=== PATIENT | male | born 1960 | race Caucasian/White ===

== ENCOUNTER 2023-05-18 14:50 | Outpatient (REF) | payer BC, SELFPAY ==
--- NOTE | ~2023-05-18 | XR_ITS ---
EXAMINATION: XR HAND/WRIST, RIGHT XR HAND/WRIST, LEFT CLINICAL INFORMATION: Osteoarthritis. COMPARISON: None available. TECHNIQUE: PA, lateral, and oblique views of the each hand and wrist, together with dedicated navicular views. FINDINGS: RIGHT HAND/WRIST: Bony alignment and mineralization are normal. There is a mild ulnar minus variance. The proximal and distal carpal rows are intact. There is marked osteoarthritic change of the first metacarpophalangeal joint. No fracture or dislocation is seen. There is no abnormal bone erosion. No focal soft tissue swelling, gas or foreign body is seen. XR/XR hand wrist LT IMPRESSION: 1. There is marked osteoarthritic change of the right first carpometacarpal joint. 2. No fracture or dislocation is seen. 3. There is no abnormal bony erosive change. LEFT HAND/WRIST: Bony alignment and mineralization are normal. There is a mild ulnar minus variance. There is a mild ulnar minus variance. The proximal and distal carpal rows are intact. There is mild osteoarthritic change of the left first carpometacarpal joint. No fracture or dislocation is seen. There is no abnormal bone erosion. No focal soft tissue swelling, gas or foreign body is seen. IMPRESSION: 1. There is mild osteoarthritic change of the left first carpometacarpal joint. 2. No fracture or dislocation is seen. 3. There is no abnormal bony erosive change.
--- NOTE | ~2023-05-18 | XR_ITS ---
EXAMINATION: XR HAND/WRIST, RIGHT XR HAND/WRIST, LEFT CLINICAL INFORMATION: Osteoarthritis. COMPARISON: None available. TECHNIQUE: PA, lateral, and oblique views of the each hand and wrist, together with dedicated navicular views. FINDINGS: RIGHT HAND/WRIST: Bony alignment and mineralization are normal. There is a mild ulnar minus variance. The proximal and distal carpal rows are intact. There is marked osteoarthritic change of the first metacarpophalangeal joint. No fracture or dislocation is seen. There is no abnormal bone erosion. No focal soft tissue swelling, gas or foreign body is seen. XR/XR hand wrist RT IMPRESSION: 1. There is marked osteoarthritic change of the right first carpometacarpal joint. 2. No fracture or dislocation is seen. 3. There is no abnormal bony erosive change. LEFT HAND/WRIST: Bony alignment and mineralization are normal. There is a mild ulnar minus variance. There is a mild ulnar minus variance. The proximal and distal carpal rows are intact. There is mild osteoarthritic change of the left first carpometacarpal joint. No fracture or dislocation is seen. There is no abnormal bone erosion. No focal soft tissue swelling, gas or foreign body is seen. IMPRESSION: 1. There is mild osteoarthritic change of the left first carpometacarpal joint. 2. No fracture or dislocation is seen. 3. There is no abnormal bony erosive change.
--- NOTE | ~2023-05-18 | XR_ITS ---
EXAMINATION: XR ANKLE, RIGHT XR FOOT, RIGHT CLINICAL INFORMATION: Osteoarthritis. COMPARISON: None available. TECHNIQUE: AP, lateral, and mortise views of the right ankle. AP, lateral, and oblique views of the right foot. FINDINGS: Bony alignment and mineralization are normal. The ankle mortise is intact. No fracture, dislocation or right joint effusion is seen. Boehler's angle is normal. There is moderately severe osteoarthritic change of the first metatarsophalangeal joint. No abnormal bone erosion is seen. There is no focal soft tissue swelling, gas or foreign body. XR/XR ankle LT min 3V IMPRESSION: 1. No fracture, dislocation or right ankle joint effusion is seen. 2. There is moderately severe osteoarthritic change of the right first metatarsophalangeal joint. EXAMINATION: XR ANKLE, LEFT XR FOOT, LEFT CLINICAL INFORMATION: Osteoarthritis. COMPARISON: None available. TECHNIQUE: AP, lateral, and mortise views of the left ankle. AP, lateral, and oblique views of the left foot. FINDINGS: No fracture. Alignment is anatomic. No erosions. Joint spaces are maintained. Soft tissues are normal. IMPRESSION: Normal left ankle.
--- NOTE | ~2023-05-18 | XR_ITS ---
EXAMINATION: XR ANKLE, RIGHT XR FOOT, RIGHT CLINICAL INFORMATION: Osteoarthritis. COMPARISON: None available. TECHNIQUE: AP, lateral, and mortise views of the right ankle. AP, lateral, and oblique views of the right foot. FINDINGS: Bony alignment and mineralization are normal. The ankle mortise is intact. No fracture, dislocation or right joint effusion is seen. Boehler's angle is normal. There is moderately severe osteoarthritic change of the first metatarsophalangeal joint. No abnormal bone erosion is seen. There is no focal soft tissue swelling, gas or foreign body. XR/XR foot LT min 3V IMPRESSION: 1. No fracture, dislocation or right ankle joint effusion is seen. 2. There is moderately severe osteoarthritic change of the right first metatarsophalangeal joint. EXAMINATION: XR ANKLE, LEFT XR FOOT, LEFT CLINICAL INFORMATION: Osteoarthritis. COMPARISON: None available. TECHNIQUE: AP, lateral, and mortise views of the left ankle. AP, lateral, and oblique views of the left foot. FINDINGS: No fracture. Alignment is anatomic. No erosions. Joint spaces are maintained. Soft tissues are normal. IMPRESSION: Normal left ankle.
--- NOTE | ~2023-05-18 | XR_ITS ---
EXAMINATION: XR ANKLE, RIGHT XR FOOT, RIGHT CLINICAL INFORMATION: Osteoarthritis. COMPARISON: None available. TECHNIQUE: AP, lateral, and mortise views of the right ankle. AP, lateral, and oblique views of the right foot. FINDINGS: Bony alignment and mineralization are normal. The ankle mortise is intact. No fracture, dislocation or right joint effusion is seen. Boehler's angle is normal. There is moderately severe osteoarthritic change of the first metatarsophalangeal joint. No abnormal bone erosion is seen. There is no focal soft tissue swelling, gas or foreign body. XR/XR ankle RT min 3V IMPRESSION: 1. No fracture, dislocation or right ankle joint effusion is seen. 2. There is moderately severe osteoarthritic change of the right first metatarsophalangeal joint. EXAMINATION: XR ANKLE, LEFT XR FOOT, LEFT CLINICAL INFORMATION: Osteoarthritis. COMPARISON: None available. TECHNIQUE: AP, lateral, and mortise views of the left ankle. AP, lateral, and oblique views of the left foot. FINDINGS: No fracture. Alignment is anatomic. No erosions. Joint spaces are maintained. Soft tissues are normal. IMPRESSION: Normal left ankle.
--- NOTE | ~2023-05-18 | XR_ITS ---
EXAMINATION: XR KNEE, RIGHT CLINICAL INFORMATION: Osteoarthritis. COMPARISON: None TECHNIQUE: AP, lateral, tunnel, and sunrise views of the right knee. FINDINGS: Bones and soft tissues are normal. No fracture or joint effusion. Alignment is anatomic. Joint spaces are well maintained. No abnormal soft tissue calcification. XR/XR knee RT 4V IMPRESSION: Normal knee. EXAMINATION: XR KNEE, LEFT CLINICAL INFORMATION: Osteoarthritis. COMPARISON: None TECHNIQUE: AP, lateral, tunnel, and sunrise views of the left knee. FINDINGS: Bones and soft tissues are normal. No fracture or joint effusion. Alignment is anatomic. Joint spaces are well maintained. No abnormal soft tissue calcification. There are surgical clips in the medial knee soft tissues. IMPRESSION: Normal knee.
--- NOTE | ~2023-05-18 | XR_ITS ---
EXAMINATION: XR ANKLE, RIGHT XR FOOT, RIGHT CLINICAL INFORMATION: Osteoarthritis. COMPARISON: None available. TECHNIQUE: AP, lateral, and mortise views of the right ankle. AP, lateral, and oblique views of the right foot. FINDINGS: Bony alignment and mineralization are normal. The ankle mortise is intact. No fracture, dislocation or right joint effusion is seen. Boehler's angle is normal. There is moderately severe osteoarthritic change of the first metatarsophalangeal joint. No abnormal bone erosion is seen. There is no focal soft tissue swelling, gas or foreign body. XR/XR foot RT min 3V IMPRESSION: 1. No fracture, dislocation or right ankle joint effusion is seen. 2. There is moderately severe osteoarthritic change of the right first metatarsophalangeal joint. EXAMINATION: XR ANKLE, LEFT XR FOOT, LEFT CLINICAL INFORMATION: Osteoarthritis. COMPARISON: None available. TECHNIQUE: AP, lateral, and mortise views of the left ankle. AP, lateral, and oblique views of the left foot. FINDINGS: No fracture. Alignment is anatomic. No erosions. Joint spaces are maintained. Soft tissues are normal. IMPRESSION: Normal left ankle.
--- NOTE | ~2023-05-18 | XR_ITS ---
EXAMINATION: XR KNEE, RIGHT CLINICAL INFORMATION: Osteoarthritis. COMPARISON: None TECHNIQUE: AP, lateral, tunnel, and sunrise views of the right knee. FINDINGS: Bones and soft tissues are normal. No fracture or joint effusion. Alignment is anatomic. Joint spaces are well maintained. No abnormal soft tissue calcification. XR/XR knee LT 4V IMPRESSION: Normal knee. EXAMINATION: XR KNEE, LEFT CLINICAL INFORMATION: Osteoarthritis. COMPARISON: None TECHNIQUE: AP, lateral, tunnel, and sunrise views of the left knee. FINDINGS: Bones and soft tissues are normal. No fracture or joint effusion. Alignment is anatomic. Joint spaces are well maintained. No abnormal soft tissue calcification. There are surgical clips in the medial knee soft tissues. IMPRESSION: Normal knee.
--- NOTE | ~2023-05-18 | XR_ITS ---
EXAMINATION: XR CHEST 2 VIEWS CLINICAL INFORMATION: Unspecified osteoarthritis. COMPARISON: None. TECHNIQUE: Frontal and lateral views of the chest were obtained. FINDINGS: The heart, great vessels, pulmonary vasculature and mediastinum are normal. There has been a prior CABG procedure. The lungs show no focal infiltrate, effusion or pneumothorax. There is no acute osseous abnormality. There has been a prior left shoulder arthroplasty. There is multi-level mild thoracic spondylosis. XR/XR chest 2V IMPRESSION: No active cardiopulmonary disease.
[2023-05-18 16:11] LABS: MANUAL DIFF FLAG NO
[2023-05-18 17:45] LABS: Basophils Percent Auto 0.2 % (0-2); Eosinophils Percent Auto 0.1 % (0-4); Hematocrit 42.6 % (42.0-52.0); Hemoglobin 14.1 g/dl (14.0-18.0); Imm Gran Abs Auto 0.16 X10*3/uL (0.00-0.03); Imm Gran Pct Auto 1.3 % (0.0-0.4); Lymphocytes Absolute Auto 1.9 X10*3/uL (1.2-4.9); Mean Corpuscular HGB Conc 33.1 g/dl (31.0-36.0); Mean Corpuscular Hemoglobin 27.2 pg (27.0-33.0); Mean Corpuscular Volume 82.1 fL (80.0-98.0); Mean Platelet Volume 9.5 fL (9.4-12.4); Monocytes Absolute Auto 0.5 X10*3/uL (0.1-1.2); Monocytes Percent Auto 3.7 % (2-11); Neutrophils Percent Auto 79.7 % (45-73); Platelet Count 472 X10*3/uL (160-400); Red Blood Count 5.19 X10*6/uL (4.60-5.80); Red Cell Distribution Width 14.3 % (11.0-16.0); White Blood Count 12.6 X10*3/uL (4.8-10.8)
[2023-05-18 18:12] LABS: Alanine Aminotransferase 31 U/L (0-40); Alkaline Phosphatase 89 U/L (39-117); Anion Gap 14 (12-20); Aspartate Amino Transferase 20 U/L (5-37); Bilirubin Total 0.3 mg/dL (0.0-1.0); Blood Urea Nitrogen 18 mg/dL (9-16); C Reactive Protein 0.68 mg/dL (< or = 0.50); Calcium 9.2 mg/dL (8.4-10.2); Carbon Dioxide 23 mmol/L (22-29); Chloride 104 mmol/L (96-108); Estimated Glomerular Filt Rate > 60; Glucose Random 177 mg/dL (60-115); Potassium 4.5 mmol/L (3.3-5.1); Sodium 136 mmol/L (135-145); Total Protein 6.9 g/dL (6.5-8.0)
[2023-05-18 18:25] LABS: Erythrocyte Sedimentation Rate 9 MM/HR (0-15)
[2023-05-19 08:16] LABS: HBS Num1 1.39 mIU/mL (0-7.99); HBc Num1 0.08 S/CO (0.00-0.79); HBsAGNum1 0.37 S/CO (0.00-0.99); Hepatitis A Antibody IgM 0.19 Index (0-0.79); Hepatitis B Core Antibody Nonreactive (Nonreactive); Hepatitis B Surface Antigen Negative (Negative); ~HepC Num1 0.07 S/CO (0.00-0.79); ~Hepatitis A Antibody IgM Nonreactive (Nonreactive); ~Hepatitis B Surface Antibody NONREACTIVE (Nonreactive); ~Hepatitis C Antibody Nonreactive (Nonreactive)
[2023-05-20 17:04] LABS: TS Negative Control Passed; TS Panel A 1; TS Panel B 0; TS Positive Control Passed; TSpotTB Negative (Negative)
[2023-05-22 18:23] LABS: Prot Elec - Albumin 3.7 g/dL (3.8-4.8); Prot Elec - Alpha1 0.4 g/dL (0.2-0.3); Prot Elec - Alpha2 0.9 g/dL (0.5-0.9); Prot Elec - Beta 1 0.4 g/dL (0.4-0.6); Prot Elec - Beta 2 0.4 g/dL (0.2-0.5); Prot Elec - Gamma 0.8 g/dL (0.8-1.7); Prot Elec - Total Protein 6.5 g/dL (6.1-8.1)
[2023-05-23 13:33] LABS: Cyclic Citrullinated Peptide <16 UNITS
[2023-05-23 17:29] LABS: IgA 188 mg/dL (70-320); IgG 861 mg/dL (600-1540); IgM 45 mg/dL (50-300)
== END 2023-05-18 14:51 | disposition home or self-care (01) ==
LOC: HO.LAB 14:50
PROVIDERS: PCP Internal Medicine; Visit Provider Student in an Organized Health Care Education/Training Program
DX: M19.90 Unspecified osteoarthritis, unspecified site (principal); E11.9 Type 2 diabetes mellitus without complications; Z11.59 Encounter for screening for other viral diseases; Z11.7 Encounter for testing for latent tuberculosis infection; Z72.89 Other problems related to lifestyle
CPT/HCPCS: 36415; 71046; 73110; 73130; 73564; 73610; 73630; 80053; 82784; 84165; 85025; 85652; 86140; 86200; 86334; 86481; 86704; 86706; 86709; 86803; 87340

== ENCOUNTER 2023-05-18 14:50 | Outpatient (AMB) | payer BC, SELFPAY ==
--- NOTE | 2023-05-18 15:00 | A.OFFVIS_ITS ---
Intake Vital Signs 3 05/18/23 15:04 Height 5 ft 5 in Weight 198 lb 6.656 oz BMI 33.0 BP 108/62 Blood Pressure Location Rt brachial Position Sitting Pulse 72 Pulse Source Pulse Oximeter Temp 96.9 F Temp Source Skin Pulse Oximetry (%) 96 Intake Visit Reasons: RA Intake Note: New pt presents today for RA consult. 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 The condition started 5-6 months ago when the patient started noticing significant cramping of his legs, at night. Soon after he started developing pain and swelling of his ankles, feet, knees, hands, wrists. Associated with significant stiffness. The stiffness can last all day but can improved if he is more active. He denies any back pain or stiffness. He stated that he had left shoulder rotator cuff tendinitis problems in the past, he had a couple of arthroscopies and eventually had left shoulder replacement around 2014. States that prednisone especially 20 mg a day provides dramatic relief. Patient denies any fevers, weight change, he denies any history suggestive of Raynaud's. Denies any history of DVT/PE. Patient's states that patient's mother had colitis she believes that it may be ulcerative colitis PFS Medical History Polyarthralgia Hypercholesteremia Stress hyperglycemia Venous insufficiency MARIANNA on CPAP Hypertension GERD (gastroesophageal reflux disease) Diabetes Coronary artery disease Surgical History S/P CABG x 3 Hx of endoscopy H/O arthroscopy of shoulder S/P cardiac catheterization Hx of colonoscopy H/O shoulder replacement Family History Mother DVT (deep venous thrombosis) Hypertension Diabetes Father Coronary artery disease Social History Household Members: Spouse Alcohol intake: current Alcohol intake frequency: holidays/special occasions only Patient Tobacco Use Status: Former Tobacco user Current occupational status: retired 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 Review of Systems Const Reports weakness Musc Reports arthralgias, Reports joint swelling and Reports stiffness Neuro Reports weakness Physical Exam Vital Signs: Last Vital Signs Temp 96.9 F 05/18/23 15:04 Pulse 72 05/18/23 15:04 BP 108/62 05/18/23 15:04 Pulse Ox 96 05/18/23 15:04 BMI result Body Mass Index 33.0 Const General: cooperative, healthy appearing and comfortable Nutritional Appearance: obese Orientation/consciousness: patient oriented x3 Limitations: no limitations HEENT Head: Yes normocephalic and Yes atraumatic Mouth: moist mucous membranes Resp Effort & Inspection: normal respiratory effort and able to speak in complete sentences Auscultation: clear to auscultation bilaterally Cardio Rate: regular rate Rhythm: regular rhythm GI Inspection: No distended Palpation (GI): Soft to palpation and nontender Skin General skin exam: no rashes or lesions noted Neuro General: patient oriented x3 Extrem Other: Bilateral wrist pain with full flexion and extension Left hand with 3rd and 4th MCP swelling No active synovitis otherwise Normal range of motion of elbows shoulders, knees ankles and feet without any pain Negative MTP squeeze test bilaterally Normal nailfold capillaroscopy Pictures from when his hand was swollen Results Reviewed Results Reviewed: Labs 10/2022? Lyme screen/Anaplasma PCR/Babesia PCR/Ehrlichia PCR/B. Miyamotoi PCR/B. Burgdoferi PCR all -ve CBC unremarkable ESR 29 Uric acid 5.3 Ultra high sensitivity CRP 50.72 (0-3) LJ screen/RF negative Labs 04/2023 ?CBC unremarkable except for hemoglobin 12.7 (>13.7) CMP unremarkable HbA1c 7.6% ESR 53 Assessment & Plan Assessment & Plan (1) Inflammatory arthritis: Code(s): M19.90 - Unspecified osteoarthritis, unspecified site Plan: This is a 63-year-old male who presents for evaluation of a 6 month history of multiple joint pain swelling and stiffness. Symptoms dramatically improved with prednisone. Clinical picture consistent with inflammatory arthritis likely RA, check labs and x-rays of involved joints. Advised patient to start tapering his prednisone. As prescribed. Follow-up in 3 weeks to discuss treatment Plan I spent 46 minutes reviewing patient's chart, evaluating patient, ordering diagnostic workup, counseling patient and documenting in the chart Orders: Orders 2 Complete Blood Count Auto Diff Today M1.90 - Unspecified osteoarthritis, unspecified site Hepatitis A,B,C Profile Today Z11.59 - Encounter for screening for other viral diseases Protein Electrophoresis, Serum Today M19.90 - Unspecified osteoarthritis, unspecified site Cyclic Citrullinated Peptide Today M19.90 - Unspecified osteoarthritis, unspecified site XR foot LT min 3V Today M19.90 - Unspecified osteoarthritis, unspecified site XR foot RT min 3V Today M19.90 - Unspecified osteoarthritis, unspecified site XR knee RT 3V Today M19.90 - Unspecified osteoarthritis, unspecified site XR knee standing BI Today M19.90 - Unspecified osteoarthritis, unspecified site Comprehensive Met. Panel Today M19.90 - Unspecified osteoarthritis, unspecified site C Reactive Protein Today M19.90 - Unspecified osteoarthritis, unspecified site Erythrocyte Sedimentation Rate Today M19.90 - Unspecified osteoarthritis, unspecified site T Spot TB Today Z11.7 - Encounter for testing for latent tuberculosis infection Immunofixation Pnl, Serum Today M19.90 - Unspecified osteoarthritis, unspecified site XR ankle LT min 3V Today M19.90 - Unspecified osteoarthritis, unspecified site XR ankle RT min 3V Today M19.90 - Unspecified osteoarthritis, unspecified site XR hand wrist LT Today M19.90 - Unspecified osteoarthritis, unspecified site XR hand wrist RT Today M19.90 - Unspecified osteoarthritis, unspecified site XR knee LT 3V Today M19.90 - Unspecified osteoarthritis, unspecified site XR chest 2V Today M19.90 - Unspecified osteoarthritis, unspecified site Medications: New 2 prednisone Take 3 tabs by mouth once daily for 1 week then 2 tabs daily for 1 week then remain on 1 tab daily 49 tabs 0RF Coding Level of Care Code New Pt Level 4 (86835) Diagnoses Inflammatory arthritis M1
[2023-05-18 15:04] VITALS: BP 108/62; PULSE 72; TEMP 36.1; O2SAT 96; BMI 33.0
== END 2023-05-18 15:32 | disposition home or self-care (01) ==
PROVIDERS: PCP Internal Medicine; Visit Provider Student in an Organized Health Care Education/Training Program
DX: M19.90 Unspecified osteoarthritis, unspecified site (principal)
CPT/HCPCS: 99204

== ENCOUNTER 2023-06-13 11:29 | Outpatient (AMB) | payer BC, SELFPAY ==
--- NOTE | 2023-06-13 11:36 | A.OFFVIS_ITS ---
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: No Accompanied by: Self / Same As Patient Allergies No Known Allergies Allergy (Verified 06/13/23 11:38) Medication List - Last Reconciled 06/13/23 by Tash Adams MD atorvastatin 80 mg PO DAILY baclofen mg PO clopidogrel 75 mg PO DAILY folic acid 1 mg PO DAILY insulin glargine (Lantus Solostar U-100 Insulin) units subcut lisinopril 2.5 mg PO DAILY metformin 500 mg PO BID methotrexate sodium 6 tabs weekly for 2 weeks then 8 tabs weekly metoprolol tartrate 25 mg PO BID nitroglycerin mg sublingual prednisone 5 mg PO DAILY HPI HPI Comments History of Present Illness Details 63-year-old male with newly diagnosed se ropositive RA returns for follow-up. He had left carpal tunnel release procedure recently and feels that the procedure was helpful. Wound is healing well. States that he just completed the prednisone taper yesterday. States that prednisone 5 mg daily is moderately effective. Initial history: This is a 63-year-old male who presents for evaluation of multiple joint pain and swelling. The condition started 5-6 months ago when the patient started noticing significant cramping of his legs, at night. Soon after he started developing pain and swelling of his ankles, feet, knees, hands, wrists. Associated with significant stiffness. The stiffness can last all day but can improved if he is more active. He denies any back pain or stiffness. He stated that he had left shoulder rotator cuff tendinitis problems in the past, he had a couple of arthroscopies and eventually had left shoulder replacement around 2015. States that prednisone especially 20 mg a day provides dramatic relief. Patient denies any fevers, weight change, he denies any history suggestive of Raynaud's. Denies any history of DVT/PE. Patient's states that patient's mother had colitis she believes that it may be ulcerative colitis [facility] Medical History (Updated 06/13/23 @ 12:50 by Tash Adams MD) Polyarthralgia Hypercholesteremia Stress hyperglycemia Venous insufficiency MARIANNA on CPAP Hypertension GERD (gastroesophageal reflux disease) Diabetes Coronary artery disease Surgical History S/P CABG x 3 Hx of endoscopy H/O arthroscopy of shoulder S/P cardiac catheterization Hx of colonoscopy H/O shoulder replacement Family History Mother DVT (deep venous thrombosis) Hypertension Diabetes Father Coronary artery disease Social History Household Members: Spouse Alcohol intake: current Alcohol intake frequency: holidays/special occasions only Patient Tobacco Use Status: Former Tobacco user Current occupational status: retired 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 Review of Systems Musc Reports arthralgias, Reports joint swelling and Reports stiffness Physical Exam Vital Signs: Last Vital Signs Temp 97.9 F 06/13/23 11:37 Pulse 70 06/13/23 11:37 Resp 15 06/13/23 11:37 BP 112/76 06/13/23 11:37 Pulse Ox 98 06/13/23 11:37 BMI result Body Mass Index 33.5 Const General: cooperative, healthy appearing and comfortable Nutritional Appearance: obese Orientation/consciousness: patient oriented x3 Limitations: no limitations HEENT Head: Yes normocephalic and Yes atraumatic Resp Effort & Inspection: normal respiratory effort and able to speak in complete sentences Cardio Rate: regular rate Rhythm: regular rhythm GI Inspection: No distended Palpation (GI): Soft to palpation Skin General skin exam: no rashes or lesions noted Neuro General: patient oriented x3 Extrem Other: Bilateral dorsal hand swelling. Diffuse 2nd through 5th MCP puffiness and mild tenderness Results Reviewed Results Reviewed: Labs 10/2022? Lyme screen/Anaplasma PCR/Babesia PCR/Ehrlichia PCR/B. Miyamotoi PCR/B. Burgdoferi PCR all -ve CBC unremarkable ESR 29 Uric acid 5.3 Ultra high sensitivity CRP 50.72 (0-3) LJ screen/RF negative Labs 04/2023 ?CBC unremarkable except for hemoglobin 12.7 (>13.7) CMP unremarkable HbA1c 7.6% ESR 53 Assessment & Plan Assessment & Plan (1) Seronegative rheumatoid arthritis: Comment: -ve RF-ve CCP dx 06/2023 Code(s): M06.00 - Rheumatoid arthritis without rheumatoid factor, unspecified site Plan: This is a 63-year-old male who presents for evaluation of a 6 month history of multiple joint pain swelling and stiffness.? Symptoms dramatically improved with prednisone.? Serology is negative. Clinical picture consistent with new onset seronegative RA.? Will need to start DMARDs.? Discussed risks and benefits of methotrexate.? Patient agreed to proceed.? Start methotrexate 15 mg once weekly for 2 weeks then 20 mg weekly.? Start folic acid 1 mg daily. Patient stated that he might be doing carpal tunnel release procedure for her his right hand sometime soon.? 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 Panel 2 Months Z79.631 - terminal operations supervisor (current) use of antimetabolite agent Erythrocyte Sedimentation Rate 2 Months Z79.631 - terminal operations supervisor (current) use of antimetabolite agent Medications: New methotrexate sodium 6 tabs weekly for 2 weeks then 8 tabs weekly 64 tabs 0RF folic acid 1 mg PO DAILY 90 tabs 1RF Changed From prednisone Take 3 tabs by mouth once daily for 1 week then 2 tabs daily for 1 week then remain on 1 tab daily 49 tabs 0RF To prednisone 5 mg PO DAILY 28 tabs 1RF Coding Level of Care Code Est Pt Level 4 (52185) Diagnoses Seronegative rheumatoid arthritis M06.00 terminal operations supervisor methotrexate user Z79.631
[2023-06-13 11:37] VITALS: BP 112/76; PULSE 70; RESP 15; TEMP 36.6; O2SAT 98; BMI 33.5
== END 2023-06-13 12:04 | disposition home or self-care (01) ==
PROVIDERS: PCP Internal Medicine; Visit Provider Student in an Organized Health Care Education/Training Program
DX: M06.00 Rheumatoid arthritis without rheumatoid factor, unspecified site (principal); Z79.631 Long term (current) use of antimetabolite agent
CPT/HCPCS: 99214

== ENCOUNTER → 2023-06-13 11:29 | Outpatient (BNVA) | payer BC, SELFPAY | PROVIDERS: PCP Internal Medicine; Visit Provider Student in an Organized Health Care Education/Training Program ==

== ENCOUNTER 2023-08-21 13:43 | Outpatient (REF) | payer BC, SELFPAY ==
[2023-08-21 14:01] LABS: MANUAL DIFF FLAG NO
[2023-08-21 14:07] LABS: Basophils Absolute Auto 0.1 X10*3/uL (0.0-0.2); Basophils Percent Auto 0.5 % (0-2); Eosinophils Absolute Auto 0.1 X10*3/uL (0.0-0.4); Eosinophils Percent Auto 1.1 % (0-4); Hematocrit 40.3 % (42.0-52.0); Hemoglobin 13.3 g/dl (14.0-18.0); Imm Gran Abs Auto 0.13 X10*3/uL (0.00-0.03); Imm Gran Pct Auto 1.1 % (0.0-0.4); Lymphocytes Absolute Auto 3.2 X10*3/uL (1.2-4.9); Lymphocytes Percent Auto 26.3 % (20-40); Mean Corpuscular Hemoglobin 28.1 pg (27.0-33.0); Mean Platelet Volume 9.4 fL (9.4-12.4); Monocytes Absolute Auto 0.7 X10*3/uL (0.1-1.2); Monocytes Percent Auto 5.7 % (2-11); Neutrophils Percent Auto 65.3 % (45-73); Platelet Count 364 X10*3/uL (160-400); Red Blood Count 4.74 X10*6/uL (4.60-5.80); Red Cell Distribution Width 15.4 % (11.0-16.0); White Blood Count 12.3 X10*3/uL (4.8-10.8)
[2023-08-21 14:48] LABS: Erythrocyte Sedimentation Rate 7 MM/HR (0-15)
[2023-08-21 15:26] LABS: Alanine Aminotransferase 27 U/L (0-40); Alkaline Phosphatase 84 U/L (39-117); Anion Gap 13 (12-20); Aspartate Amino Transferase 21 U/L (5-37); Bilirubin Total 0.4 mg/dL (0.0-1.0); Blood Urea Nitrogen 14 mg/dL (9-16); C Reactive Protein 0.11 mg/dL (< or = 0.50); Calcium 8.6 mg/dL (8.4-10.2); Carbon Dioxide 22 mmol/L (22-29); Chloride 107 mmol/L (96-108); Estimated Glomerular Filt Rate > 60; Glucose Random 157 mg/dL (60-115); Potassium 4.1 mmol/L (3.3-5.1); Sodium 138 mmol/L (135-145); Total Protein 6.7 g/dL (6.5-8.0)
== END 2023-08-21 13:44 | disposition home or self-care (01) ==
LOC: HO.LAB 13:43
PROVIDERS: PCP Nurse Practitioner Family; Visit Provider Student in an Organized Health Care Education/Training Program
DX: Z51.81 Encounter for therapeutic drug level monitoring (principal); Z79.631 Long term (current) use of antimetabolite agent
CPT/HCPCS: 36415; 80053; 85025; 85652; 86140

== ENCOUNTER 2023-08-29 12:42 | Outpatient (AMB) | payer BC, SELFPAY ==
[2023-08-29 12:54] VITALS: BP 118/68; PULSE 71; TEMP 36; O2SAT 98; BMI 34.0
--- NOTE | 2023-08-29 12:54 | MHC.OFFVIS ---
Intake Vital Signs 08/29/23 12:54 Height 5 ft 5 in Weight 204 lb 5.896 oz BMI 34.0 BP 118/68 Blood Pressure Location Rt brachial Position Sitting Pulse 71 Pulse Source Pulse Oximeter Temp 96.8 F Temp Source Skin Pulse Oximetry (%) 98 Oxygen Delivery Method Room Air Intake Visit Reasons: RA Intake Note: Patient last seen 06/13/23 presents today for follow up and test results. Multimedia Project Manager Required: No Accompanied by: Self / Same As Patient Allergies No Known Allergies Allergy (Verified 08/29/23 12:57) Medication List - Last Reconciled 08/29/23 by Tash Aadms MD atorvastatin 80 mg PO DAILY baclofen mg PO clopidogrel 75 mg PO DAILY folic acid 1 mg PO DAILY insulin glargine (Lantus Solostar U-100 Insulin) units subcut lisinopril 2.5 mg PO DAILY metformin 500 mg PO BID methotrexate sodium 20 mg (8 x 2.5 mg) PO QWEEK metoprolol tartrate 25 mg PO BID nitroglycerin mg sublingual prednisone 5 mg PO DAILY HPI HPI Comments History of Present Illness Details 63-year-old male with seropositive RA returns for follow-up. He is on methotrexate 20 mg weekly and prednisone 5 mg daily. States that he feels better overall with less joint swelling and stiffness. Continues to have generalized morning stiffness lasting 15-20 minutes. She used to have tingling of his left hand carpal tunnel release procedure did not help much. Denies any side effects related to methotrexate planning to go to [facility] from mid October to early October. Initial history: This is a 63-year-old male who presents for evaluation of multiple joint pain and swelling. The condition started 5-6 months ago when the patient started noticing significant cramping of his legs, at night. Soon after he started developing pain and swelling of his ankles, feet, knees, hands, wrists. Associated with significant stiffness. The stiffness can last all day but can improved if he is more active. He denies any back pain or stiffness. He stated that he had left shoulder rotator cuff tendinitis problems in the past, he had a couple of arthroscopies and eventually had left shoulder replacement around 2014. States that prednisone especially 20 mg a day provides dramatic relief. Patient denies any fevers, weight change, he denies any history suggestive of Raynaud's. Denies any history of DVT/PE. Patient's states that patient's mother had colitis she believes that it may be ulcerative colitis PFSH Medical History Polyarthralgia Hypercholesteremia Stress hyperglycemia Venous insufficiency MARIANNA on CPAP Hypertension GERD (gastroesophageal reflux disease) Diabetes Coronary artery disease Surgical History S/P CABG x 3 Hx of endoscopy H/O arthroscopy of shoulder S/P cardiac catheterization Hx of colonoscopy H/O shoulder replacement Family History Mother DVT (deep venous thrombosis) Hypertension Diabetes Father Coronary artery disease Social History Household Members: Spouse Alcohol intake: current Alcohol intake frequency: holidays/special occasions only Patient Tobacco Use Status: Former Tobacco user Current occupational status: retired 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 Review of Systems Musc Reports arthralgias, Reports joint swelling and Reports stiffness Physical Exam Vital Signs: Last Vital Signs Temp 96.8 F 08/29/23 12:54 Pulse 71 08/29/23 12:54 BP 118/68 08/29/23 12:54 Pulse Ox 98 08/29/23 12:54 Oxygen Delivery Method Room Air 08/29/23 12:54 BMI result Body Mass Index 34.0 Const General: cooperative, healthy appearing and comfortable Nutritional Appearance: obese Orientation/consciousness: patient oriented x3 Limitations: no limitations HEENT Head: Yes normocephalic and Yes atraumatic Resp Effort & Inspection: normal respiratory effort and able to speak in complete sentences Cardio Rate: regular rate Rhythm: regular rhythm GI Inspection: No distended Palpation (GI): Soft to palpation Skin General skin exam: no rashes or lesions noted Neuro General: patient oriented x3 Extrem Other: Minimal puffiness of both hands Right wrist tenderness to palpation and pain with flexion and extension Positive MCP squeeze test on the right Right 3rd flexor tendon tenderness Negative Tinel test on the right Normal range of motion of right elbow without pain Left wrist tenderness to palpation Left 4th and 5th flexor tendon tenderness Normal range of motion of left elbow without pain Mildly limited bilateral shoulder abduction Results Reviewed Results Reviewed: Labs 10/2022? Lyme screen/Anaplasma PCR/Babesia PCR/Ehrlichia PCR/B. Miyamotoi PCR/B. Burgdoferi PCR all -ve CBC unremarkable ESR 29 Uric acid 5.3 Ultra high sensitivity CRP 50.72 (0-3) LJ screen/RF negative Labs 04/2023 ?CBC unremarkable except for hemoglobin 12.7 (>13.7) CMP unremarkable HbA1c 7.6% ESR 53 Assessment & Plan Assessment & Plan (1) Seronegative rheumatoid arthritis: Comment: -ve RF-ve CCP dx 06/2023 MTX 06/2023 Code(s): M06.00 - Rheumatoid arthritis without rheumatoid factor, unspecified site Plan: This is a 63-year-old male with seronegative RA who presents for follow-up. On prednisone 5 mg daily and methotrexate 20 mg weekly. Well tolerated. Doing much better overall but continues to have generalized morning stiffness and multiple tender joints. Increase methotrexate to 25 mg weekly, split dose into 5 tabs morning and 5 tabs Monday morning. Continue with prednisone 5 mg daily, plan to taper next visit Continue folic acid 1 mg daily Labs before next visit in 10 weeks (2) correction methotrexate user: Code(s): Z79.631 - long term care phlebotomist (current) use of antimetabolite agent Plan: Monitor safety labs Plan I spent 26 minutes reviewing patient's chart, evaluating patient, ordering diagnostic workup, counseling patient and documenting in the chart Medications: Changed From methotrexate sodium 20 mg (8 x 2.5 mg) PO QWEEK 32 tabs 0RF To methotrexate sodium Split dose into 5 tabs on morning and 5 tabs on Monday morning 25 mg (10 x 2.5 mg) PO QWEEK 120 tabs 0RF Coding Level of Care Code Est Pt Level 4 (35925) Diagnoses Seronegative rheumatoid arthritis M06.00 long term care phlebotomist methotrexate user Z79.631
== END 2023-08-29 13:32 | disposition home or self-care (01) ==
PROVIDERS: PCP Nurse Practitioner Family; Visit Provider Student in an Organized Health Care Education/Training Program
DX: M06.00 Rheumatoid arthritis without rheumatoid factor, unspecified site (principal); Z79.631 Long term (current) use of antimetabolite agent
CPT/HCPCS: 99214

== ENCOUNTER → 2023-08-29 12:42 | Outpatient (BNVA) | payer BC, SELFPAY | PROVIDERS: PCP Nurse Practitioner Family; Visit Provider Student in an Organized Health Care Education/Training Program ==

== ENCOUNTER 2023-12-07 14:24 | Outpatient (REF) | payer BC, SELFPAY ==
[2023-12-07 15:37] LABS: MANUAL DIFF FLAG NO
[2023-12-07 15:55] LABS: Basophils Absolute Auto 0.1 X10*3/uL (0.0-0.2); Basophils Percent Auto 0.5 % (0-2); Eosinophils Absolute Auto 0.4 X10*3/uL (0.0-0.4); Eosinophils Percent Auto 4.3 % (0-4); Hematocrit 42.4 % (42.0-52.0); Hemoglobin 14.1 g/dl (14.0-18.0); Imm Gran Abs Auto 0.05 X10*3/uL (0.00-0.03); Imm Gran Pct Auto 0.5 % (0.0-0.4); Lymphocytes Absolute Auto 3.1 X10*3/uL (1.2-4.9); Mean Corpuscular HGB Conc 33.3 g/dl (31.0-36.0); Mean Corpuscular Hemoglobin 29.1 pg (27.0-33.0); Mean Corpuscular Volume 87.6 fL (80.0-98.0); Mean Platelet Volume 9.4 fL (9.4-12.4); Monocytes Absolute Auto 1.3 X10*3/uL (0.1-1.2); Monocytes Percent Auto 12.8 % (2-11); Neutrophils Absolute Auto 5.1 x10*3/uL (2.0-8.3); Neutrophils Percent Auto 50.9 % (45-73); Platelet Count 299 X10*3/uL (160-400); Red Blood Count 4.84 X10*6/uL (4.60-5.80); Red Cell Distribution Width 15.1 % (11.0-16.0)
[2023-12-07 16:37] LABS: Erythrocyte Sedimentation Rate 14 MM/HR (0-15)
[2023-12-07 16:39] LABS: Alanine Aminotransferase 24 U/L (0-40); Albumin Level 4.3 g/dL (3.5-5.0); Alkaline Phosphatase 111 U/L (39-117); Anion Gap 14 (12-20); Aspartate Amino Transferase 18 U/L (5-37); Bilirubin Total 0.5 mg/dL (0.0-1.0); Blood Urea Nitrogen 13 mg/dL (9-16); C Reactive Protein 0.89 mg/dL (< or = 0.50); Calcium 9.4 mg/dL (8.4-10.2); Carbon Dioxide 25 mmol/L (22-29); Chloride 106 mmol/L (96-108); Estimated Glomerular Filt Rate > 60; Glucose Random 93 mg/dL (60-115); Potassium 4.3 mmol/L (3.3-5.1); Sodium 141 mmol/L (135-145); Total Protein 7.1 g/dL (6.5-8.0)
== END 2023-12-07 14:25 | disposition home or self-care (01) ==
LOC: HO.LAB 14:24
PROVIDERS: PCP Nurse Practitioner Family; Visit Provider Student in an Organized Health Care Education/Training Program
DX: M06.00 Rheumatoid arthritis without rheumatoid factor, unspecified site (principal); Z79.631 Long term (current) use of antimetabolite agent
CPT/HCPCS: 36415; 80053; 85025; 85652; 86140

== ENCOUNTER 2023-12-07 14:24 | Outpatient (AMB) | payer BC, SELFPAY ==
[2023-12-07 14:43] VITALS: BP 102/64; PULSE 79; O2SAT 97; BMI 33.9
--- NOTE | 2023-12-07 14:43 | MHC.OFFVIS ---
Vital Signs 12/07/23 14:43 Height 5 ft 5 in Weight 203 lb 14.841 oz BMI 33.9 BP 102/64 Blood Pressure Location Rt brachial Position Sitting Pulse 79 Pulse Source Pulse Oximeter Pulse Oximetry (%) 97 Oxygen Delivery Method Room Air Intake Visit Reasons: RA/CM Time Study Statistician Required: No Accompanied by: Self / Same As Patient Allergies No Known Allergies Allergy (Verified 12/07/23 15:00) Medication List - Last Reconciled 12/07/23 by Tash Adams MD atorvastatin 80 mg PO DAILY baclofen mg PO clopidogrel 75 mg PO DAILY folic acid 1 mg PO DAILY insulin glargine (Lantus Solostar U-100 Insulin) units subcut lisinopril 2.5 mg PO DAILY metformin 500 mg PO BID methotrexate sodium 25 mg (10 x 2.5 mg) PO QWEEK metoprolol tartrate 25 mg PO BID nitroglycerin mg sublingual HPI Comments Details: 63-year-old male with seronegative RA returns for follow-up. On methotrexate 25 mg weekly split dose, folic acid 1 mg daily. Well-tolerated. Patient reduced his prednisone to 2.5 mg after last visit and discontinued it. States that he feels great overall. He gets some stomach upset if he does not have his methotrexate with food. Initial history: This is a 63-year-old male who presents for evaluation of multiple joint pain and swelling. The condition started 5-6 months ago when the patient started noticing significant cramping of his legs, at night. Soon after he started developing pain and swelling of his ankles, feet, knees, hands, wrists. Associated with significant stiffness. The stiffness can last all day but can improved if he is more active. He denies any back pain or stiffness. He stated that he had left shoulder rotator cuff tendinitis problems in the past, he had a couple of arthroscopies and eventually had left shoulder replacement around 2014. States that prednisone especially 20 mg a day provides dramatic relief. Patient denies any fevers, weight change, he denies any history suggestive of Raynaud's. Denies any history of DVT/PE. Patient's states that patient's mother had colitis she believes that it may be ulcerative colitis [facility] Medical History Polyarthralgia Hypercholesteremia Stress hyperglycemia Venous insufficiency MARIANNA on CPAP Hypertension GERD (gastroesophageal reflux disease) Diabetes Coronary artery disease Surgical History S/P CABG x 3 Hx of endoscopy H/O arthroscopy of shoulder S/P cardiac catheterization Hx of colonoscopy H/O shoulder replacement Family History Mother DVT (deep venous thrombosis) Hypertension Diabetes Father Coronary artery disease Social History Household Members: Spouse Alcohol intake: current Alcohol intake frequency: holidays/special occasions only Patient Tobacco Use Status: Former Tobacco user Current occupational status: retired 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 Review of Systems Musc Denies deformity, Denies arthralgias, Denies joint swelling and Denies stiffness Physical Exam Vital Signs: Last Vital Signs Pulse 79 12/07/23 14:43 BP 102/64 12/07/23 14:43 Pulse Ox 97 12/07/23 14:43 Oxygen Delivery Method Room Air 12/07/23 14:43 BMI result Body Mass Index 33.9 Const General: cooperative, healthy appearing and comfortable Nutritional Appearance: obese Orientation/consciousness: patient oriented x3 Limitations: no limitations HEENT Head: Yes normocephalic and Yes atraumatic Resp Effort & Inspection: normal respiratory effort and able to speak in complete sentences Cardio Rate: regular rate Rhythm: regular rhythm GI Inspection: No distended Palpation (GI): Soft to palpation Skin General skin exam: no rashes or lesions noted Neuro General: patient oriented x3 Extrem Other: No tender joints today Mild swelling of left thumb without tenderness Normal range of motion of hands, wrists, elbows and shoulders without pain No knee pain with full flexion-extension bilaterally No ankle swelling or tenderness bilaterally Results Reviewed Results Reviewed: Labs 10/2022? Lyme screen/Anaplasma PCR/Babesia PCR/Ehrlichia PCR/B. Miyamotoi PCR/B. Burgdoferi PCR all -ve CBC unremarkable ESR 29 Uric acid 5.3 Ultra high sensitivity CRP 50.72 (0-3) LJ screen/RF negative Labs 04/2023 ?CBC unremarkable except for hemoglobin 12.7 (>13.7) CMP unremarkable HbA1c 7.6% ESR 53 Assessment & Plan Assessment & Plan (1) Seronegative rheumatoid arthritis: Comment: -ve RF-ve CCP dx 06/2023 MTX 06/2023 effective PDN tapered off 10/2023 Code(s): M06.00 - Rheumatoid arthritis without rheumatoid factor, unspecified site Category: Medical Plan: This is a 63-year-old male with seronegative RA who presents for follow-up. Doing very well on methotrexate 25 mg weekly split dose and folic acid 1 mg daily Prednisone has been tapered off. 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: Code(s): Z79.631 - parts counterman (current) use of antimetabolite agent Category: Medical Plan: Monitor safety labs Plan I spent 26 minutes reviewing patient's chart, evaluating patient, ordering diagnostic workup, counseling patient and documenting in the chart Orders: Orders Complete Blood Count Auto Diff Today M06.00 - Rheumatoid arthritis without rheumatoid factor, unspecified site, Z79.631 - snf (current) use of antimetabolite agent C Reactive Protein 4 Months M06.00 - Rheumatoid arthritis without rheumatoid factor, unspecified site, Z79.631 - parts counterman (current) use of antimetabolite agent Comprehensive Met. Panel Today M06.00 - Rheumatoid arthritis without rheumatoid factor, unspecified site, Z79.631 - parts counterman (current) use of antimetabolite agent C Reactive Protein Today M06.00 - Rheumatoid arthritis without rheumatoid factor, unspecified site, Z79.631 - parts counterman (current) use of antimetabolite agent Erythrocyte Sedimentation Rate Today M06.00 - Rheumatoid arthritis without rheumatoid factor, unspecified site, Z79.631 - snf (current) use of antimetabolite agent Complete Blood Count Auto Diff 4 Months M06.00 - Rheumatoid arthritis without rheumatoid factor, unspecified site, Z79.631 - parts counterman (current) use of antimetabolite agent Comprehensive Met. Panel 4 Months M06.00 - Rheumatoid arthritis without rheumatoid factor, unspecified site, Z79.631 - snf (current) use of antimetabolite agent Erythrocyte Sedimentation Rate 4 Months M06.00 - Rheumatoid arthritis without rheumatoid factor, unspecified site, Z79.631 - snf (current) use of antimetabolite agent Coding Level of Care Code Est Pt Level 4 (11599) Diagnoses Seronegative rheumatoid arthritis M06.00 parts counterman methotrexate user Z79.631
== END 2023-12-07 15:18 | disposition home or self-care (01) ==
PROVIDERS: PCP Nurse Practitioner Family; Visit Provider Student in an Organized Health Care Education/Training Program
DX: M06.00 Rheumatoid arthritis without rheumatoid factor, unspecified site (principal); Z79.631 Long term (current) use of antimetabolite agent
CPT/HCPCS: 99214

== ENCOUNTER 2024-05-01 14:34 | Outpatient (REF) | payer BC, SELFPAY ==
[2024-05-01 14:44] LABS: MANUAL DIFF FLAG NO
[2024-05-01 15:05] LABS: Basophils Absolute Auto 0.1 X10*3/uL (0.0-0.2); Basophils Percent Auto 0.7 % (0-2); Eosinophils Absolute Auto 0.4 X10*3/uL (0.0-0.4); Eosinophils Percent Auto 4.8 % (0-4); Hematocrit 40.4 % (42.0-52.0); Hemoglobin 13.7 g/dl (14.0-18.0); Imm Gran Abs Auto 0.05 X10*3/uL (0.00-0.03); Imm Gran Pct Auto 0.6 % (0.0-0.4); Lymphocytes Absolute Auto 3.4 X10*3/uL (1.2-4.9); Lymphocytes Percent Auto 37.8 % (20-40); Mean Corpuscular HGB Conc 33.9 g/dl (31.0-36.0); Mean Corpuscular Hemoglobin 29.7 pg (27.0-33.0); Mean Corpuscular Volume 87.4 fL (80.0-98.0); Mean Platelet Volume 10.6 fL (9.4-12.4); Monocytes Absolute Auto 0.9 X10*3/uL (0.1-1.2); Monocytes Percent Auto 10.2 % (2-11); Neutrophils Absolute Auto 4.1 x10*3/uL (2.0-8.3); Neutrophils Percent Auto 45.9 % (45-73); Platelet Count 315 X10*3/uL (160-400); Red Blood Count 4.62 X10*6/uL (4.60-5.80); Red Cell Distribution Width 14.8 % (11.0-16.0)
[2024-05-01 16:06] LABS: Erythrocyte Sedimentation Rate 6 MM/HR (0-15)
[2024-05-01 16:52] LABS: Alanine Aminotransferase 31 U/L (0-40); Albumin Level 4.1 g/dL (3.5-5.0); Alkaline Phosphatase 99 U/L (39-117); Anion Gap 12 (12-20); Aspartate Amino Transferase 24 U/L (5-37); Bilirubin Total 0.4 mg/dL (0.0-1.0); Blood Urea Nitrogen 13 mg/dL (9-16); C Reactive Protein < 0.10 mg/dL (< or = 0.50); Calcium 8.6 mg/dL (8.4-10.2); Carbon Dioxide 27 mmol/L (22-29); Chloride 107 mmol/L (96-108); Estimated Glomerular Filt Rate > 60; Glucose Random 99 mg/dL (60-115); Potassium 4.1 mmol/L (3.3-5.1); Sodium 142 mmol/L (135-145); Total Protein 6.7 g/dL (6.5-8.0)
== END 2024-05-01 14:35 | disposition home or self-care (01) ==
LOC: HO.LAB 14:34
PROVIDERS: PCP Nurse Practitioner Family; Visit Provider Student in an Organized Health Care Education/Training Program
DX: M06.00 Rheumatoid arthritis without rheumatoid factor, unspecified site (principal); Z79.631 Long term (current) use of antimetabolite agent
CPT/HCPCS: 36415; 80053; 85025; 85652; 86140

== ENCOUNTER 2024-05-09 07:49 | Outpatient (AMB) | payer BC, SELFPAY ==
--- NOTE | 2024-05-09 07:56 | A.OFFVIS_ITS ---
Vital Signs 05/09/24 07:59 Height 5 ft 5 in Weight 198 lb 13.711 oz BMI 33.1 BP 102/64 Blood Pressure Location Lt brachial Position Sitting Pulse 52 Pulse Source Pulse Oximeter Pulse Oximetry (%) 98 Oxygen Delivery Method Room Air Intake Visit Reasons: RA/cm Intake Note: Patient presents for RA. Allergies No Known Allergies Allergy (Verified 05/09/24 07:58) Medication List - Last Reconciled 05/09/24 by Tash Adams MD atorvastatin 80 mg PO DAILY baclofen mg PO clopidogrel 75 mg PO DAILY folic acid 1 mg PO DAILY insulin glargine (Lantus Solostar U-100 Insulin) units subcut lisinopril 2.5 mg PO DAILY metformin 500 mg PO BID methotrexate sodium 25 mg (10 x 2.5 mg) PO QWEEK metoprolol tartrate 25 mg PO BID nitroglycerin mg sublingual HPI Comments Details: 64-year-old male with seronegative RA returns for follow-up. On methotrexate 25 mg weekly split dose, folic acid 1 mg daily. Well-tolerated. States that he feels great. No joint pain, swelling or stiffness whatsoever. Initial history: This is a 63-year-old male who presents for evaluation of multiple joint pain and swelling. The condition started 5-6 months ago when the patient started noticing significant cramping of his legs, at night. Soon after he started developing pain and swelling of his ankles, feet, knees, hands, wrists. Associated with significant stiffness. The stiffness can last all day but can improved if he is more active. He denies any back pain or stiffness. He stated that he had left shoulder rotator cuff tendinitis problems in the past, he had a couple of arthroscopies and eventually had left shoulder replacement around 2014. States that prednisone especially 20 mg a day provides dramatic relief. Patient denies any fevers, weight change, he denies any history suggestive of Raynaud's. Denies any history of DVT/PE. Patient's states that patient's mother had colitis she believes that it may be ulcerative colitis [facility] Medical History Polyarthralgia Hypercholesteremia Stress hyperglycemia Venous insufficiency MARIANNA on CPAP Hypertension GERD (gastroesophageal reflux disease) Diabetes Coronary artery disease Surgical History S/P CABG x 3 Hx of endoscopy H/O arthroscopy of shoulder S/P cardiac catheterization Hx of colonoscopy H/O shoulder replacement Family History Mother DVT (deep venous thrombosis) Hypertension Diabetes Father Coronary artery disease Social History Household Members: Spouse Alcohol intake: current Alcohol intake frequency: holidays/special occasions only Patient Tobacco Use Status: Former Tobacco user Current occupational status: retired 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 Review of Systems Musc Denies deformity, Denies arthralgias, Denies joint swelling and Denies stiffness Physical Exam Vital Signs: Last Vital Signs Pulse 52 05/09/24 07:59 BP 102/64 05/09/24 07:59 Pulse Ox 98 05/09/24 07:59 Oxygen Delivery Method Room Air 05/09/24 07:59 BMI result Body Mass Index 33.1 Const General: cooperative, healthy appearing and comfortable Nutritional Appearance: obese Orientation/consciousness: patient oriented x3 Limitations: no limitations HEENT Head: Yes normocephalic and Yes atraumatic Resp Effort & Inspection: normal respiratory effort and able to speak in complete sentences Cardio Rate: regular rate Rhythm: regular rhythm GI Inspection: No distended Palpation (GI): Soft to palpation Skin General skin exam: no rashes or lesions noted Neuro General: patient oriented x3 Extrem Other: No active synovitis today Normal range of motion of hands, wrists, elbows and shoulders without pain No knee pain with full flexion-extension bilaterally No ankle swelling or tenderness bilaterally Assessment & Plan Assessment & Plan (1) Seronegative rheumatoid arthritis: Comment: -ve RF-ve CCP dx 06/2023 MTX 06/2023 effective PDN tapered off 10/2023 Code(s): M06.00 - Rheumatoid arthritis without rheumatoid factor, unspecified site Category: Medical Plan: This is a 64-year-old male with seronegative RA who presents for follow-up. Doing very well on methotrexate 25 mg weekly split dose and folic acid 1 mg daily Continue current meds Labs in 3 months and in 6 months before next visit (2) skilled nursing methotrexate user: Code(s): Z79.631 - long term care phlebotomist (current) use of antimetabolite agent Category: Medical Plan: Monitor safety labs (3) Immunization counseling: Code(s): Z71.85 - Encounter for immunization safety counseling Category: Medical Plan: Patient states that he generally does not get vaccinated, even before the COVID pandemic. Advised patient that he should get vaccinated. At least get the flu vaccine and Shingrix vaccine. Hold 1-2 doses of methotrexate after vaccination. He will think about it Plan I spent 26 minutes reviewing patient's chart, evaluating patient, ordering diagnostic workup, counseling patient and documenting in the chart Orders: Orders Comprehensive Met. Panel 3 Months M06.00 - Rheumatoid arthritis without rheumatoid factor, unspecified site, Z79.631 - skilled nursing (current) use of antimetabolite agent C Reactive Protein 3 Months M06.00 - Rheumatoid arthritis without rheumatoid factor, unspecified site, Z79.631 - long term care phlebotomist (current) use of antimetabolite agent Erythrocyte Sedimentation Rate 3 Months M06.00 - Rheumatoid arthritis without rheumatoid factor, unspecified site, Z79.631 - long term care phlebotomist (current) use of antimetabolite agent Complete Blood Count Auto Diff 08/09/24 M06.00 - Rheumatoid arthritis without rheumatoid factor, unspecified site, Z79.631 - long term care phlebotomist (current) use of antimetabolite agent Comprehensive Met. Panel 08/09/24 M06.00 - Rheumatoid arthritis without rheumatoid factor, unspecified site, Z79.631 - skilled nursing (current) use of antimetabolite agent C Reactive Protein 08/09/24 M06.00 - Rheumatoid arthritis without rheumatoid factor, unspecified site, Z79.631 - skilled nursing (current) use of antimetabolite agent Erythrocyte Sedimentation Rate 08/09/24 M06.00 - Rheumatoid arthritis without rheumatoid factor, unspecified site, Z79.631 - long term care phlebotomist (current) use of antimetabolite agent Comprehensive Met. Panel 02/05/25 M06.00 - Rheumatoid arthritis without rheumatoid factor, unspecified site, Z79.631 - skilled nursing (current) use of antimetabolite agent Comprehensive Met. Panel 05/06/25 M06.00 - Rheumatoid arthritis without rheumatoid factor, unspecified site, Z79.631 - long term care phlebotomist (current) use of antimetabolite agent C Reactive Protein 11/07/24 M06.00 - Rheumatoid arthritis without rheumatoid factor, unspecified site, Z79.631 - skilled nursing (current) use of antimetabolite agent C Reactive Protein 02/05/25 M06.00 - Rheumatoid arthritis without rheumatoid factor, unspecified site, Z79.631 - skilled nursing (current) use of antimetabolite agent C Reactive Protein 05/06/25 M06.00 - Rheumatoid arthritis without rheumatoid factor, unspecified site, Z79.631 - long term care phlebotomist (current) use of antimetabolite agent Erythrocyte Sedimentation Rate 02/05/25 M06.00 - Rheumatoid arthritis without rheumatoid factor, unspecified site, Z79.631 - long term care phlebotomist (current) use of antimetabolite agent Complete Blood Count Auto Diff 3 Months M06.00 - Rheumatoid arthritis without rheumatoid factor, unspecified site, Z79.631 - long term care phlebotomist (current) use of antimetabolite agent Complete Blood Count Auto Diff 11/07/24 M06.00 - Rheumatoid arthritis without rheumatoid factor, unspecified site, Z79.631 - skilled nursing (current) use of antimetabolite agent Complete Blood Count Auto Diff 02/05/25 M06.00 - Rheumatoid arthritis without rheumatoid factor, unspecified site, Z79.631 - skilled nursing (current) use of antimetabolite agent Complete Blood Count Auto Diff 05/06/25 M06.00 - Rheumatoid arthritis without rheumatoid factor, unspecified site, Z79.631 - long term care phlebotomist (current) use of antimetabolite agent Comprehensive Met. Panel 11/07/24 M06.00 - Rheumatoid arthritis without rheumatoid factor, unspecified site, Z79.631 - skilled nursing (current) use of antimetabolite agent Erythrocyte Sedimentation Rate 11/07/24 M06.00 - Rheumatoid arthritis without rheumatoid factor, unspecified site, Z79.631 - long term care phlebotomist (current) use of antimetabolite agent Erythrocyte Sedimentation Rate 05/06/25 M06.00 - Rheumatoid arthritis without rheumatoid factor, unspecified site, Z79.631 - skilled nursing (current) use of antimetabolite agent Medications: Refilled methotrexate sodium 25 mg (10 x 2.5 mg) PO QWEEK 120 tabs 0RF Coding Level of Care Code Est Pt Level 4 (55249) Diagnoses Seronegative rheumatoid arthritis M06.00 skilled nursing methotrexate user Z79.631 Immunization counseling Z71.85
[2024-05-09 07:59] VITALS: BP 102/64; PULSE 52; O2SAT 98; BMI 33.1
== END 2024-05-09 08:15 | disposition home or self-care (01) ==
LOC: HO.RHE 07:49
PROVIDERS: PCP Nurse Practitioner Family; Visit Provider Student in an Organized Health Care Education/Training Program
DX: M06.00 Rheumatoid arthritis without rheumatoid factor, unspecified site (principal); Z79.631 Long term (current) use of antimetabolite agent; Z71.85 Encounter for immunization safety counseling
CPT/HCPCS: 99214

== ENCOUNTER → 2024-05-09 07:49 | Outpatient (BNVA) | payer BC, SELFPAY | PROVIDERS: PCP Nurse Practitioner Family; Visit Provider Student in an Organized Health Care Education/Training Program ==

== ENCOUNTER 2024-08-27 09:46 | Outpatient (REF) | payer BC, SELFPAY ==
[2024-08-27 09:59] LABS: MANUAL DIFF FLAG NO
[2024-08-27 10:15] LABS: Basophils Absolute Auto 0.1 X10*3/uL (0.0-0.2); Basophils Percent Auto 0.7 % (0-2); Eosinophils Absolute Auto 0.4 X10*3/uL (0.0-0.4); Eosinophils Percent Auto 4.7 % (0-4); Hemoglobin 14.7 g/dl (14.0-18.0); Imm Gran Abs Auto 0.03 X10*3/uL (0.00-0.03); Imm Gran Pct Auto 0.3 % (0.0-0.4); Lymphocytes Absolute Auto 3.1 X10*3/uL (1.2-4.9); Lymphocytes Percent Auto 35.1 % (20-40); Mean Corpuscular HGB Conc 32.7 g/dl (31.0-36.0); Mean Corpuscular Hemoglobin 28.5 pg (27.0-33.0); Mean Corpuscular Volume 87.4 fL (80.0-98.0); Mean Platelet Volume 10.5 fL (9.4-12.4); Monocytes Absolute Auto 0.9 X10*3/uL (0.1-1.2); Monocytes Percent Auto 10.2 % (2-11); Neutrophils Absolute Auto 4.3 x10*3/uL (2.0-8.3); Platelet Count 275 X10*3/uL (160-400); Red Blood Count 5.15 X10*6/uL (4.60-5.80); Red Cell Distribution Width 14.6 % (11.0-16.0); White Blood Count 8.7 X10*3/uL (4.8-10.8)
[2024-08-27 10:53] LABS: Alanine Aminotransferase 32 U/L (0-40); Albumin Level 4.2 g/dL (3.5-5.0); Alkaline Phosphatase 100 U/L (39-117); Anion Gap 11 (12-20); Aspartate Amino Transferase 28 U/L (5-37); Bilirubin Total 0.6 mg/dL (0.0-1.0); Blood Urea Nitrogen 17 mg/dL (9-16); C Reactive Protein < 0.10 mg/dL (< or = 0.50); Calcium 9.4 mg/dL (8.4-10.2); Carbon Dioxide 27 mmol/L (22-29); Chloride 107 mmol/L (96-108); Estimated Glomerular Filt Rate > 60; Glucose Random 117 mg/dL (60-115); Potassium 4.7 mmol/L (3.3-5.1); Sodium 140 mmol/L (135-145); Total Protein 7.3 g/dL (6.5-8.0)
[2024-08-27 10:57] LABS: Erythrocyte Sedimentation Rate 5 MM/HR (0-15)
--- OUTSIDE RECORDS SUMMARY | 2024-08-27 11:05 | XMS_ITS | Clinical Summary ---
Author Organization [facility] Address [phone] [facility] [place] [address] Care Team Providers Care Director Of Enterprise Architecture Name Role Phone Momo Powell MD Primary Care Provider [phone] Allergies No known active allergies Medications Medication Sig Dispensed Refills Start Date End Date Status atorvastatin (LIPITOR) 80 MG tablet Take 80 mg by mouth daily. Active omeprazole (PRILOSEC) 20 mg TbEC Take 20 mg by mouth daily before breakfast. Active therapeutic multivitamin tablet Take 1 tablet by mouth daily. Active aspirin 325 MG tablet Act tish IBUPROFEN ORAL 1 tab(s) Active metoprolol tartrate (LOPRESSOR) 25 MG tablet Take 25 mg by mouth. 3 07/16/2017 Active nitroglycerin (NITROSTAT) 0.[address] 1 TABLET UNDER TONGUE EVERY 5 MINUTES IF NEEDED FOR CHEST PAIN 11 07/01/2017 Active Active Problems Problem Noted Date Diagnosed Date Left shoulder pain Family History Medical History Relation Comments No Known Problems Brother Heart disease Father No Known Problems Maternal Aunt No Known Problems Maternal Grandfather No Known Problems Maternal Grandmother No Known Problems Maternal Uncle Diabetes Mother No Known Problems Paternal Aunt No Known Problems Paternal Grandfather No Known Problems Paternal Grandmother No Known Problems Paternal Uncle No Known Problems Sister No Known Problems Unspecified Cancer Neg Hx Clotting disorder Neg Hx Collagen disease Neg Hx Depression Neg Hx Dislocations Neg Hx Gout Neg Hx Infl. arthritis Neg Hx Osteoporosis Neg Hx Scoliosis Neg Hx Relation Status Comments Brother Father Maternal Aunt Maternal Grandfather Maternal Grandmother Maternal Uncle Mother Paternal Aunt Paternal Grandfather Paternal Grandmother Paternal Uncle Sister Unspecified Social History Tobacco Use Types Packs/Day Years Used Date Smoking Tobacco: Former Smokeless Tobacco: Never Alcohol Use Standard Drinks/Week Comments No 0 (1 standard drink = 0.6 oz pur e alcohol) Education Answer Date Recorded Are you interested in more education? Not on cony e 10/28/2022 Are you concerned about learning? Not on file 10/28/2022 No 10/28/2022 No 10/28/2022 Digital Access Answer Date Recorded No 11/28/2022 No 11/28/2022 No 11/28/2022 Reliable internet access at home? Not on file 11/28/2022 Device with a working camera? Not on file Sex and Gender Information Value Date Recorded Sex Assigned at Not on file Gender Identity Not on file Sexual Orientation Not on file Last Filed Vital Signs Vital Sign Reading Time Taken Comments Blood Pressure - - Pulse - - Temperature - - Respiratory Rate - - Oxygen Saturation - - Inhaled Oxygen Concentration - - Weight 90.7 kg (200 lb) 09/05/2017 8:37 AM EST Height 165.1 cm (5' 5 ) 09/05/2017 8:37 AM EST Body Mass Index 33.28 09/05/2017 8:37 AM EST Plan of Treatment Health Maintenance Due Date Last Done Comments Adult Td,Tdap Booster 1962 LIPID PANEL 1962 DEPRESSION SCREENING 1974 SMOKING Hx and SMOKELESS TOB ACCO SCREENING 1975 HEPATITIS B SCREENING 1980 HEPATITIS C SCREENING 1980 HIV ONE-TIME SCREENING (18-6 5 YEARS) 1980 COLOGUARD 2007 COLONOSCOPY 2007 COLORECTAL CANCER SCREENING 2007 FIT TEST 2007 FOBT 2007 SIGMOIDOSCOPY 2007 VIRTUAL COLONOSCOPY 2007 PNEUMOCOCCAL VACCINES (50+ y ears) (1 of 1 - PCV) 2012 ZOSTER VACCINES (1 of 2) 2012 INFLUENZA VACCINE (#1) 2024 04/30/2020 COVID-19 VACCINE (2 - 2023-2 5 season) 2024 03/10/2021 RSV VACCINE (1 - 1-dose 75+ series) 2037 HEPATITIS A VACCINES Aged Out No long er eligible based on patient's age to complete this topic HEPATITIS B VACCINES Aged Out No long er eligible based on patient's age to complete this topic HIB VACCINES Aged Out No longer eligi ble based on patient's age to complete this topic MENINGOCOCCAL VACCINES (ACWY) Aged Out No longer eligible based on patient's age to complete this topic Medical Devices Not on file Care Teams Director Of Enterprise Architecture Relationship Specialty Start Date End Date Momo Powell MD [address] [place] [address] PCP - General Internal Medicine 03/09/17 Additional Source Comments The information contained in this document represents components of the legal health record. It is not the complete legal health record.[facility]
== END 2024-08-27 09:47 | disposition home or self-care (01) ==
LOC: HO.LAB 09:46
PROVIDERS: PCP Nurse Practitioner Family; Visit Provider Student in an Organized Health Care Education/Training Program
DX: M06.00 Rheumatoid arthritis without rheumatoid factor, unspecified site (principal); Z79.631 Long term (current) use of antimetabolite agent
CPT/HCPCS: 36415; 80053; 85025; 85652; 86140

== ENCOUNTER 2024-11-07 14:24 | Outpatient (AMB) | payer BC, SELFPAY ==
[2024-11-07 14:32] VITALS: BP 110/64; PULSE 71; O2SAT 97; BMI 33.2
--- NOTE | 2024-11-07 14:32 | MHC.OFFVIS ---
Vital Signs 11/07/24 14:32 Height 5 ft 5 in Weight 199 lb 8.293 oz BMI 33.2 BP 110/64 Blood Pressure Location Lt brachial Position Sitting Pulse 71 Pulse Source Pulse Oximeter Pulse Oximetry (%) 97 Oxygen Delivery Method Room Air Intake Visit Reasons: RA Intake Note: Patient presents for follow up on RA today. Patient would like to talk about decreasing the Methotrexate today. Allergies No Known Allergies Allergy (Verified 11/07/24 14:34) Medication List - Last Reconciled 11/07/24 by Haylie Nickerson MD aspirin (Adult Aspirin Regimen) 81 mg PO DAILY atorvastatin 80 mg PO DAILY baclofen mg PO clopidogrel 75 mg PO DAILY folic acid 1 mg PO DAILY insulin glargine (Lantus Solostar U-100 Insulin) units subcut lisinopril 2.5 mg PO DAILY metformin 500 mg PO BID methotrexate sodium 25 mg (10 x 2.5 mg) PO QWEEK metoprolol tartrate 25 mg PO BID nitroglycerin mg sublingual HPI Comments Details: Patient is a 64-year-old male with hyperlipidemia complicated by coronary artery disease, hypertension, diabetes and seronegative rheumatoid arthritis here today for follow up Interval History: patient last seen 05/09/[address] Adams. At that time he was following up for his seronegative rheumatoid arthritis on methotrexate 25 mg weekly split dose and folic acid 1 mg daily. He was in remission on this regimen Today, Continues to do well on the regimen Rheumatologic History: -ve RF-ve CCP dx 06/2023 MTX 06/2023 effective PDN tapered off 10/2023 Initial history: This is a 63-year-old male who presents for evaluation of multiple joint pain and swelling. The condition started 5-6 months ago when the patient started noticing significant cramping of his legs, at night. Soon after he started developing pain and swelling of his ankles, feet, knees, hands, wrists. Associated with significant stiffness. The stiffness can last all day but can improved if he is more active. He denies any back pain or stiffness. He stated that he had left shoulder rotator cuff tendinitis problems in the past, he had a couple of arthroscopies and eventually had left shoulder replacement around 2014. States that prednisone especially 20 mg a day provides dramatic relief. Patient denies any fevers, weight change, he denies any history suggestive of Raynaud's. Denies any history of DVT/PE. Patient's states that patient's mother had colitis she believes that it may be ulcerative colitis Current Rheumatology Medication(s): Methotrexate 25 mg weekly split dose Folic acid 1 mg daily [facility] Medical History Polyarthralgia Hypercholesteremia Stress hyperglycemia Venous insufficiency MARIANNA on CPAP Hypertension GERD (gastroesophageal reflux disease) Diabetes Coronary artery disease Surgical History S/P CABG x 3 Hx of endoscopy H/O arthroscopy of shoulder S/P cardiac catheterization Hx of colonoscopy H/O shoulder replacement Family History Mother DVT (deep venous thrombosis) Hypertension Diabetes Father Coronary artery disease Social History Household Members: Spouse Alcohol intake: current Alcohol intake frequency: holidays/special occasions only Patient Tobacco Use Status: Former Tobacco user Current occupational status: retired 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 Review of Systems Const Details: Review of Systems Constitutional: Denies fever, chills, weight loss ENT: Denies vision changes, eye pain or eye redness, dental caries, dry mouth GI: Denies nausea, vomiting, diarrhea, abdominal pain, change in BM Pulm: Denies SOB, STRANGE, hemoptysis, wheezing Cards: Denies chest pain, palpitations Skin: Denies Raynaud's, rash, nail changes, photosensitivity, NEGATIVE RESTORER: Denies headaches, weakness, paresthesias, recurrent falls MSK: as per HPI All other systems reviewed and are unremarkable except noted above Physical Exam Vital Signs: Last Vital Signs Pulse 71 11/07/24 14:32 BP 110/64 11/07/24 14:32 Pulse Ox 97 11/07/24 14:32 Oxygen Delivery Method Room Air 11/07/24 14:32 BMI result Body Mass Index 33.2 Vital signs reviewed Physical Examination CONSTITUITIONAL Patient alert and cooperative. Well appearing and in no apparent painful distress HEENT Conjunctiva and sclera clear. Pupils equal round and reactive to light. No lymphadenopathy. CHEST/RESPIRATORY SYSTEM Normal respiratory effort and able to speak in complete sentences. Clear to auscultation bilaterally. No crackles, rales, rhonchi, wheezes heard. CARDIAC SYSTEM Regular rate and rhythm. S1 and S2 heard no murmurs. Radial pulses intact bilaterally MSK Hands: Able to make a fist. No synovitis noted to the MCPs, PIPs or DIPs. No tenderness to palpation of these joints. No deformities noted. Wrists: Full range of motion at the wrists without pain. No tenderness to palpation or synovitis noted to the wrists. Elbows: Full range of motion without pain. No tenderness, weakness, swelling, increased warmth or erythema. Shoulders: Full range of active range of motion without pain. No tenderness, weakness, swelling, increased warmth or erythema. Hips: Full range of motion without pain. Hip bursa: No tenderness to palpation Knees: Full range of motion. No tenderness, swelling, increased warmth or erythema.?No effusion or crepitations Ankles: Full range of motion. No tenderness, swelling, increased warmth or erythema.? Feet: Negative squeeze test. No tenderness to palpation or swelling of the MTPs. Tender points:?No tenderness to palpation of the bilateral trapezius, supraspinatus, greater trochanters, anterior costochondral junctions, bilateral gluteal areas, bilateral suboccipital muscle insertions SKIN Skin intact without rashes. Results Reviewed Results Reviewed: Laboratory Tests 08/27/24 09:57 WBC 8.7 RBC 5.15 Hgb 14.7 Hct 45.0 Plt Count 275 ESR 5 Sodium 140 Potassium 4.7 Chloride 107 Carbon Dioxide 27 BUN 17 H Creatinine 0.86 AST 28 ALT 32 Alkaline Phosphatase 100 C-Reactive Protein < 0.10 Infectious serologies 05/18/23 16:10 Hepatitis A IgM Ab Nonreactive Hep Bs Antigen Negative Hep Bs Antibody NONREACTIVE Hep B Core Total Ab Nonreactive Hepatitis C Ab (EIA) Nonreactive TB Test (T-Spot) Com Negative Assessment & Plan Assessment & Plan (1) Seronegative rheumatoid arthritis: Comment: -ve RF-ve CCP dx 06/2023 MTX 06/2023 effective PDN tapered off 10/2023 Code(s): M06.00 - Rheumatoid arthritis without rheumatoid factor, unspecified site Category: Medical Plan: #Seronegative RA Patient is a 64-year-old male with seronegative rheumatoid arthritis on methotrexate monotherapy. Currently in remission. 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 Limit alcohol and avoid Bactrim ? Monitoring: CBC, BMP, LFTs every 3-4 months and hepatitis serologies as needed Plan I spent 25 minutes reviewing the record and labs, taking a history, examining the patient, discussing the treatment plan, ordering diagnostic work up and documenting in the medical record Orders: Orders Complete Blood Count Auto Diff 6 Months M06.00 - Rheumatoid arthritis without rheumatoid factor, unspecified site Comprehensive Met. Panel 6 Months M06.00 - Rheumatoid arthritis without rheumatoid factor, unspecified site C Reactive Protein 6 Months M06.00 - Rheumatoid arthritis without rheumatoid factor, unspecified site Erythrocyte Sedimentation Rate 6 Months M06.00 - Rheumatoid arthritis without rheumatoid factor, unspecified site Hepatitis A,B,C Profile 6 Months M06.00 - Rheumatoid arthritis without rheumatoid factor, unspecified site T Spot TB 6 Months M06.00 - Rheumatoid arthritis without rheumatoid factor, unspecified site Medications: Changed From methotrexate sodium 25 mg (10 x 2.5 mg) PO QWEEK 120 tabs 0RF M06.00 - Rheumatoid arthritis without rheumatoid factor, unspecified site To methotrexate sodium 20 mg (8 x 2.5 mg) PO QWEEK 90 days 104 tabs 1RF M06.00 - Rheumatoid arthritis without rheumatoid factor, unspecified site Refilled folic acid 1 mg PO DAILY 90 tabs 1RF Coding Level of Care Code Est Pt Level 3 (25532) Complex EM visit Add On G2211 Diagnoses Seronegative rheumatoid arthritis M06.00 retirement methotrexate user Z79.631
--- OUTSIDE RECORDS SUMMARY | 2024-11-07 15:14 | XMS_ITS | Clinical Summary ---
Author Organization [facility] Address [address] [place] [address] Phone Care Team Providers Care Revenue Stamp Cutter Name Role Phone Momo Powell MD Primary Care Provider Allergies No known active allergies Medications Medication [...] Medical Devices Not on file Care Teams Revenue Stamp Cutter Relationship Specialty Start Date End Date Momo Powell MD [address] [place] [address] PCP - General Internal Medicine 03/09/17 Additional Source Comments The information contained in this document represents components of the legal health record. It is not the complete legal health record.[facility]
== END 2024-11-07 14:59 | disposition home or self-care (01) ==
LOC: HO.RHE 14:25
PROVIDERS: PCP Nurse Practitioner Family; Visit Provider Student in an Organized Health Care Education/Training Program
DX: M06.00 Rheumatoid arthritis without rheumatoid factor, unspecified site (principal); Z79.631 Long term (current) use of antimetabolite agent
CPT/HCPCS: 99213

== ENCOUNTER 2025-05-12 14:46 | Outpatient (REF) | payer BC, SELFPAY ==
[2025-05-12 15:16] LABS: MANUAL DIFF FLAG NO
[2025-05-12 15:25] LABS: Hematocrit 41.8 % (42.0-52.0); Hemoglobin 13.7 g/dl (14.0-18.0); Imm Gran Abs Auto 0.04 X10*3/uL (0.00-0.03); Imm Gran Pct Auto 0.5 % (0.0-0.4); Lymphocytes Absolute Auto 3.1 X10*3/uL (1.2-4.9); Mean Corpuscular HGB Conc 32.8 g/dl (31.0-36.0); Mean Corpuscular Hemoglobin 28.5 pg (27.0-33.0); Mean Corpuscular Volume 86.9 fL (80.0-98.0); NRBC Abs Auto 0.000 X10*3/uL (0.0-0.012); NRBC Pct Auto 0.0 /100WBC (0.0-0.2); Platelet Count 274 X10*3/uL (160-400); Red Blood Count 4.81 X10*6/uL (4.60-5.80); White Blood Count 8.8 X10*3/uL (4.8-10.8)
[2025-05-12 15:53] LABS: Alanine Aminotransferase 33 U/L (0-40); Albumin Level 4.4 g/dL (3.5-5.0); Alkaline Phosphatase 118 U/L (39-117); Anion Gap 15 (12-20); Aspartate Amino Transferase 25 U/L (5-37); Blood Urea Nitrogen 15 mg/dL (9-16); Calcium 9.1 mg/dL (8.4-10.2); Carbon Dioxide 23 mmol/L (22-29); Chloride 108 mmol/L (96-108); Estimated Glomerular Filt Rate > 60; Potassium 3.9 mmol/L (3.3-5.1); Sodium 142 mmol/L (135-145); Total Protein 7.0 g/dL (6.5-8.0)
--- OUTSIDE RECORDS SUMMARY | 2025-05-12 17:02 | XMS_ITS | Clinical Summary ---
Author Organization [facility] Address [address] [place] [address] Phone Care Team Providers Care Financial Aid Administrator Name Role Phone Momo Powell MD Primary Care Provider Allergies No known active allergies Medications atorvastatin (LIPITOR) 80 MG tablet Take 80 mg by mouth daily. Active omeprazole (PRILOSEC) 20 mg TbEC Take 20 mg by mouth daily before breakfast. Active therapeutic multivitamin tablet Take 1 tablet by mouth daily. Active aspirin 325 MG tablet Active IBUPROFEN ORAL 1 tab(s) Activ e metoprolol tartrate (LOPRESSOR) 25 MG tablet Take 25 mg by mouth. 3 8 Active nitroglycerin (NITROSTAT) 0.[address] 1 TABLET UNDER TONGUE EVERY 5 MINUTES IF NEEDED FOR CHEST PAIN 11 7 Active Active Problems Problem Noted Date Diagnosed [...] Answer Date Recorded No 11/28/2022 No 11/28/2022 Reliable internet access at home? Not on file 11/28/2022 Device with a working camera? Not on file Sex and Gender Information Value Date Recorded Sex Assigned at Not on file Legal Sex Male 9:35 AM EDT Gender Identity Not on file Sexual Orientation [...] and SMOKELESS TOB ACCO SCREENING 1975 HEPATITIS C SCREENING 1980 HIV ONE-TIME SCREENING (18-6 5 YEARS) 1980 COLOGUARD 2007 COLONOSCOPY 2007 COLORECTAL CANCER SCREENING 2007 FIT TEST 2007 FOBT 2007 SIGMOIDOSCOPY 2007 VIRTUAL COLONOSCOPY 2007 PNEUMOCOCCAL VACCINES (50+ y ears) (1 of 1 - PCV) 2012 ZOSTER VACCINES (1 of 2) 2012 INFLUENZA VACCINE (#1) 2025 04/30/2020 COVID-19 VACCINE (2 - 2024-2 6 season) 2025 03/10/2021 RSV VACCINE (1 - 1-dose 75+ series) 2037 HEPATITIS A VACCINES Aged Out No long er eligible based on patient's age to complete this topic HIB VACCINES Aged Out No longer eligi ble based on patient's age to complete this topic MENINGOCOCCAL VACCINES (ACWY) Aged Out No longer eligible based on patient's age to complete this topic MENINGOCOCCAL VACCINES (B) Aged Out N o longer eligible based on patient's age to complete this topic Medical Devices Not on file Insurance O POS [facility] [place] [address] [place] [address] [place] [address] [place] [address] [employer] Care Teams Financial Aid Administrator Relationship Specialty Start Date End Date Momo Powell MD [address] [place] [address] PCP - General Internal Medicine 03/09/17 Additional Source Comments The information contained in this document represents components of the legal health record. It is not the complete legal health record.[facility]
[2025-05-13 06:41] LABS: HBS Num1 1.40 mIU/mL (0-7.99); HBc Num1 0.11 S/CO (0.00-0.79); HBsAGNum1 0.43 S/CO (0.00-0.99); Hepatitis A Antibody IgM 0.23 Index (0-0.79); Hepatitis B Surface Antigen Negative (Negative); ~HepC Num1 0.09 S/CO (0.00-0.79); ~Hepatitis A Antibody IgM Nonreactive (Nonreactive); ~Hepatitis B Surface Antibody NONREACTIVE (Nonreactive); ~Hepatitis C Antibody Nonreactive (Nonreactive)
[2025-05-15 11:44] LABS: TS Negative Control Passed; TS Panel A 0; TS Panel B 0; TS Positive Control Passed; TSpotTB Negative (Negative)
== END 2025-05-12 14:47 | disposition home or self-care (01) ==
LOC: HO.LAB 14:46
PROVIDERS: Student in an Organized Health Care Education/Training Program; Visit Provider Nurse Practitioner Family
DX: Z11.1 Encounter for screening for respiratory tuberculosis (principal); M06.00 Rheumatoid arthritis without rheumatoid factor, unspecified site
CPT/HCPCS: 36415; 80053; 85025; 85652; 86140; 86481; 86704; 86706; 86709; 86803; 87340

== ENCOUNTER 2025-06-18 09:41 | Outpatient (AMB) | payer BC, SELFPAY ==
--- OUTSIDE RECORDS SUMMARY | 2025-06-14 23:59 | XMS_ITS | Continuity of Care Document ---
Author Organization [facility] Primary [facility] [place] Address [address] [place] [address]- Care Team Providers Care Bottling Supervisor Name Role Phone Fine NOVELTIES SALES REPRESENTATIVE, Melvin Valentin Primary Care Physician [id number] Date(s): 05/15/25 - 06/14/[address] [address] Encounter Type: Triage Allergies, Adverse Reactions, Alerts No Known Allergies Immunizations Given and Recorded Vaccine Date Status Refusal Reason tetanus/diphtheria/pertussis, acel(Tdap) 08/21/24 Given tetanus/diphtheria/pertussis, acel(Tdap) 09/17/11 Recorded SARS-CoV-2 (COVID-19) mRNA BNT-162b2 vac 03/31/21 Recorded SARS-CoV-2 (COVID-19) mRNA BNT-162b2 vac 03/10/21 Recorded influenza virus vaccine, inactivated 04/30/20 Sumit rded influenza virus vaccine, inactivated 05/13/16 Give n pneumococcal 23-valent vaccine 05/13/16 Given Medications aspirin 81 mg oral tablet, chewable 1 tablet = 81 mg, By Mouth, Daily, # 90 tablet, 1 Refills, Maintenance, 04/12/24 4:04:00 PM EDT, Chew Tablet, [facility]/pharmacy #[id number], Partial fill upon patient request if the prescription is for a schedule II opioid drug., 165, cm, 01/29/24 16:36:00 EDT, Height, 92.8, kg, 12/28/22 14:24:00 EDT, Dry Weight Start Date: 04/12/24 Status: Ordered Medication Dispense Status: Completed Quantity: 90.0 Unit: tablet Total Allowed Fills: 2 Fills Dispensed: 0 atorvastatin 80 mg oral tablet 1 tablet = 80 mg, By Mouth, Daily, # 90 tablet, 3 Refills, Maintenance, 08/30/24 10:50:00 AM EST, Tablet, [facility]/pharmacy #[id number], 165, cm, 08/21/24 17:06:00 EST, Height, 92.8, kg, 12/28/22 14:24:00 EDT, Dry Weight Start Date: 08/30/24 Status: Ordered Medication Dispense Status: Completed Quantity: 90.0 Unit: tablet Total Allowed Fills: 4 Fills Dispensed: 0 BD UF SHORT PEN NEEDLE [id number] BD UF SHORT PEN NEEDLE [id number], See Instructions, # 90 Unknown, 3 Refills, Maintenance, USE ONE DAILY FOR INSULIN INJECTIONS DX: E11.9, 09/06/24 9:56:00 AM EST, 165, cm, 08/21/24 17:06:00 EST, Height, 92.8, kg, 12/28/22 14:24:00 EDT, Dry Weight Start Date: 09/06/24 Status: Ordered Medication Dispense Status: Completed Quantity: 90.0 Unit: Unknown Total Allowed Fills: 1 Fills Dispensed: 0 clopidogrel 75 mg oral tablet 1, tablet, By Mouth, Daily, # 90 tablet, Refills 3, Tot. Refills 3, Maintenance, 03/17/25 9:33:00 AMEDT, Route to Pharmacy Electronically, [facility]/pharmacy #[id number], 165, cm, 10/10/24 15:11:00 EDT, Height, 90.5, kg, 09/20/24 20:39:00 EDT, Dry Weight Start Date: 03/17/25 Status: Ordered Medication Dispense Status: Completed Quantity: 90.0 Unit: tablet Total Allowed Fills: 4 Fills Dispensed: 0 folic acid 1 mg oral tablet TAKE 1 TABLET BY MOUTH EVERY DAY Start Date: 08/16/23 Status: Ordered Medication Dispense Status: Completed Total Allowed Fills: 1 Fills Dispensed: 0 Freestyle Eneida 3 CGM Sensor Freestyle Eneida 3 CGM Sensor, See Instructions, # 2 each, Refills 11, Tot. Refills 11, Maintenance,Use to check blood sugar before breakfast and before and 2 hours after meals as directed, 07/02/24 1:51:00 PM EST, e11.65, Supply, 165, cm, 07/02/24 13:18:00 EST, Height, 92.8, kg, 12/28/22 14:24:00 EDT, Dry Weight Start Date: 07/02/24 Status: Ordered Medication Dispense Status: Completed Quantity: 2.0 Unit: each Total Allowed Fills: 12 Fills Dispensed: 0 Indications: Type 2 diabetes mellitus without complications; Freestyle Eneida 3+ Sensor Freestyle Eneida 3+ Sensor, See Instructions, # 2 each, Refills 11, Tot. Refills 11, Maintenance, Use to check blood sugar before breakfast and before and 2 hours after meals as directed, 07/02/24 1:51:00 PM EST, e11.65, Supply, 165, cm, 07/02/24 13:18:00 EST, Height, 92.8, kg, 12/28/22 14:24:00 EDT, Dry Weight Start Date: 07/02/24 Status: Ordered Medication Dispense Status: Completed Quantity: 2.0 Unit: each Total Allowed Fills: 12 Fills Dispensed: 0 Freestyle Lite Lancets See Instructions, # 3 each, Refills 0, Tot. Refills 0, Maintenance, USE DIRECTED FOR DIABETES USE TO MONITOR AND RECORD HOME BLOOD SUGARS MUST TAKE FASTING AM BLOOD SUGAR AND 2 HOURS POSTPRANDIAL E 11.9 1 BOX = 100 LANCETS, 06/08/23 11:51:00 AM EST, Supply, 165, cm, 06/06/23 11:13:00 EST, Height,92.8, kg, 12/28/22 14:24:00 EDT, Dry Weight Start Date: 06/08/23 Status: Ordered Medication Dispense Status: Completed Quantity: 3.0 Unit: each Total Allowed Fills: 1 Fills Dispensed: 0 Freestyle Lite Monitor See Instructions, # 1 each, Refills 0, Tot. Refills 0, Maintenance, USE DIRECTED FOR DIABETES USE TO MONITOR AND RECORD HOME BLOOD SUGARS MUST TAKE FASTING AM BLOOD SUGAR AND 2 HOURS POSTPRANDIAL E 11.9, 06/08/23 11:51:00 AM EST, Supply, 165, cm, 06/06/23 11:13:00 EST, Height, 92.8, kg, 12/28/22 14:24:00 EDT, Dry Weight Start Date: 06/08/23 Status: Ordered Medication Dispense Status: Completed Quantity: 1.0 Unit: each Total Allowed Fills: 1 Fills Dispensed: 0 Freestyle Lite Test Strips See Instructions, # 3 each, Refills 1, Tot. Refills 1, Maintenance, USE DIRECTED FOR DIABETES USE TO MONITOR AND RECORD HOME BLOOD SUGARS MUST TAKE FASTING AM BLOOD SUGAR AND 2 HOURS AFTER LUNCH AND DINNER MEALS E 11.9 1 BOX = 100 TEST STRIPS, 09/13/23 4:02:00 PM EDT, Supply, 165, cm, 08/16/23 9:44:00 EST, Height, 92.8, kg, 12/28/22 14:24:00 EDT, Dry Weight Start Date: 09/13/23 Status: Ordered Medication Dispense Status: Completed Quantity: 3.0 Unit: each Total Allowed Fills: 2 Fills Dispensed: 0 hydrocortisone/neomycin/polymyxin B otic 1%-0.35%-20294 u/ml suspension 4 drops, Ears, Both, 3 times a day, for 7 days, # 7.5 mL, 0 Refills, Acute 06/19/25 6:32:00 PM EST,06/12/25 6:32:00 PM EST, Suspension, [facility]/pharmacy #[id number], Partial fill upon patient request if the prescription is for a schedule II opioid drug., 4 drops Ears, Both 3 times a day,x7 days, 165, cm, 06/12/25 18:07:00 EST, Height, 90.5, kg, 09/20/24 20:39:00 EDT, Dry Weight Start Date: 06/12/25 Stop Date: 06/19/25 Status: Ordered Medication Dispense Status: Completed Quantity: 7.5 Unit: mL Total Allowed Fills: 1 Fills Dispensed: 0 Lantus Solostar Pen 100 units/mL subcutaneous solution = 20 units, Subcutaneous Injection, Daily at bedtime, # 10 mL, 4 Refills, Maintenance, 06/25/24 1:41:00 PM EST, Solution, [facility]/pharmacy #[id number], Partial fill upon patient request if the prescription is for a schedule II opioid drug., 165, cm, 06/20/24 15:39:00 EST, Height, 92.8, kg, 12/28/22 14:24:00 EDT, Dry Weight Start Date: 06/25/24 Status: Ordered Medication Dispense Status: Completed Quantity: 10.0 Unit: mL Total Allowed Fills: 5 Fills Dispensed: 0 Indications: Type 2 diabetes mellitus without complications; lisinopril 2.5 mg oral tablet 2.5 mg, 1, tablet, By Mouth, Daily, # 90 tablet, Refills 3, Tot. Refills 3, Maintenance, 08/30/24 10:57:00 AM EST, Route to Pharmacy Electronically, [facility]/pharmacy #[id number], 165, cm, 08/21/24 17:06:00 EST,Height, 92.8, kg, 12/28/22 14:24:00 EDT, Dry Weight Start Date: 08/30/24 Status: Ordered Medication Dispense Status: Completed Quantity: 90.0 Unit: tablet Total Allowed Fills: 4 Fills Dispensed: 0 metFORMIN 500 mg oral tablet 1 tablet = 500 mg, By Mouth, 2 times a day, # 180 tablet, 3 Refills, Maintenance, 12/09/24 1:43:00 PMEDT, Tablet, [facility]/pharmacy #[id number], Partial fill upon patient request if the prescription is for a schedule II opioid drug., 165, cm, 10/10/24 15:11:00 EDT, Height, 90.5, kg, 09/20/24 20:39:00 EDT, Dry Weight Start Date: 12/09/24 Stop Date: 12/04/25 Status: Ordered Medication Dispense Status: Completed Quantity: 180.0 Unit: tablet Total Allowed Fills: 4 Fills Dispensed: 0 metFORMIN 500 mg oral tablet 1 tablet = 500 mg, By Mouth, 2 times a day, for 90 days, # 180 tablet, 3 Refills, Hard Stop :17:00 PM EDT, 09/17/24 3:17:00 PM EDT, Tablet, [facility]/pharmacy #[id number], Partial fill upon patient request if the prescription is for a schedule II opioid drug., 165, cm, 08/21/24 17:06:00 EST, Height, 92.8, kg, 12/28/22 14:24:00 EDT, Dry Weight Start Date: 09/17/24 Stop Date: 09/12/25 Status: Ordered Medication Dispense Status: Completed Quantity: 180.0 Unit: tablet Total Allowed Fills: 4 Fills Dispensed: 0 methotrexate 2.5 mg oral tablet TAKE 8 TABLETS BY MOUTH WEEKLY Start Date: 08/16/23 Status: Ordered Medication Dispense Status: Completed Total Allowed Fills: 1 Fills Dispensed: 0 Metoprolol Tartrate 25 mg oral tablet 1 tablet, By Mouth, 2 times a day, # 180 tablet, 3 Refills, Maintenance, 12/04/24 11:04:00 AM EDT, [facility]/pharmacy #[id number], 165, cm, 10/10/24 15:11:00 EDT, Height, 90.5, kg, 09/20/24 20:39:00 EDT, Dry Weight Start Date: 12/04/24 Status: Ordered Medication Dispense Status: Completed Quantity: 180.0 Unit: tablet Total Allowed Fills: 4 Fills Dispensed: 0 Multi Vitamin+ 0 Refills, Maintenance, 01/04/18 9:19:00 AM EDT Start Date: 01/04/18 Status: Ordered Medication Dispense Status: Completed Total Allowed Fills: 1 Fills Dispensed: 0 nitroglycerin 0.4 mg sublingual tablet 1 tablet = 0.4 mg, Sublingual, Every 5 minutes, PRN as needed for chest pain, not to exceed 3 doses/15 min--if pain persists, seek medical attention, # 25 tablet, 0 Refills, Maintenance, 03/20/25 8:34:00 AM EDT, Tablet, [facility]/pharmacy #[id number], Partial fill upon patient request if the prescription is fora schedule II opioid drug., 165, cm, 03/20/25 8:24:00 EDT, Height, 90.5, kg, 09/20/24 20:39:00 EDT,Dry Weight Start Date: 03/20/25 Status: Ordered Medication Dispense Status: Completed Quantity: 25.0 Unit: tablet Total Allowed Fills: 1 Fills Dispensed: 0 Pen Napoleon, 31 G x 8 mm BD Ultra Fine III See Instructions, # 100 each, Refills 1, Tot. Refills 1, Maintenance, use one daily for insulin injections DX: E11.9, 09/05/24 3:47:00 PM EST, Supply, 165, cm, 08/21/24 17:06:00 EST, Height, 92.8, kg, 12/28/22 14:24:00 EDT, Dry Weight Start Date: 09/05/24 Stop Date: 03/04/25 Status: Ordered Medication Dispense Status: Completed Quantity: 100.0 Unit: each Total Allowed Fills: 2 Fills Dispensed: 0 pseudoephedrine 30 mg oral tablet 1 tablet = 30 mg, By Mouth, Every 6 hours, PRN as needed for congestion, for 5 days, # 20 tablet, 0Refills, Acute 06/17/25 6:33:00 PM EST, 06/12/25 6:33:00 PM EST, Tablet, [facility]/pharmacy #[id number], Partial fill upon patient request if the prescription is for a schedule II opioid drug., 165, cm, 06/12/2518:07:00 EST, Height, 90.5, kg, 09/20/24 20:39:00 EDT, Dry Weight Start Date: 06/12/25 Stop Date: 06/17/25 Status: Ordered Medication Dispense Status: Completed Quantity: 20.0 Unit: tablet Total Allowed Fills: 1 Fills Dispensed: 0 Problem List Condition Confirmation Course Effective Dates Status Health Status Informant Angina at rest Confirmed Active Dilated aortic root Confirmed Active CAD (coronary artery disease) Confirmed Active Diabetes mellitus Confirmed Active Ex-smoker Confirmed Active Gastroesophageal reflux disease with small hiatal hernia Confirmed Active Status post replacement of left shoulder joint Confirmed Active Herpes labialis Confirmed Active Hypercholesterolemia Confirmed Active Hypertension Confirmed Active Stress hyperglycemia Confirmed Active Obese class I Confirmed Active Obesity (BMI 34 as of 05/06/2016) Confirmed Active MARIANNA on CPAP Confirmed Active Venous insufficiency Confirmed Active Social History Social History Type Response Smoking Status Former smoker, quit more than 30 days ago; Interested in cessation: No; Patient wants NRT during admission No;Never; Type: Cigarettes; Exposure to Secondhand Smoke: No; Previous treatment: None; Tobacco user in household: No; Other: QUIT X30 YEARS; Tobacco use times per day: 3 PACKS PER DAY; Number of years: 4; Total pack years: 12; entered on: 08/16/23 Sexual Orientation Self described orien tation: ; Straight or heterosexual Sex Sex Representation Male (finding) Patient Care team information Care Team Personnel Name: Dario Patrick RN Position: [facility] SN RN Member Role: Primary Care Nurse Name: Melvin Ordonez NP Position: [facility] PCO Associate Professional Member Role: PCP Address: [address] [place] [address] Care [place], [place] [address] Telecom: Name: Kaye Randall RN Position: [facility] SN RN Member Role: Primary Care Nurse Name: Lata Lamar RN Position: [facility] RN Member Role: Primary Care Nurse Name: Billie Regalado RN Position: [facility] RN Member Role: Primary Care Nurse Care Team Related Persons Name: DARIO HENAO Name: CONCHA HENAO Name: CONCHA HENAO Insurance Providers Guarantor name: JOSE ROBERTO HENAO Health Plan Information #: 1 Payer: [facility] Payer Identifier: [id number] Member Number: [id number] Group Number: [id number] Subscriber Identifier: NA Relationship to Subscriber: spouse Coverage Type: NA Coverage Verification Date: NA Telecom: NA Address: NA
--- NOTE | 2025-06-18 10:01 | A.OFFVIS_ITS ---
Vital Signs 06/18/25 10:06 Height 5 ft 5 in Weight 199 lb 11.821 oz BMI 33.2 BP 115/74 Blood Pressure Location Lt brachial Position Sitting Pulse 62 Pulse Source Pulse Oximeter Pulse Oximetry (%) 98 Oxygen Delivery Method Room Air Intake Visit Reasons: f/u RA Intake Note: Patient presents today for RA follow up and test results. Mold Polisher Required: No Information Interpreted: non-clinical & clinical Accompanied by: Self / Same As Patient Allergies No Known Allergies Allergy (Verified 06/18/25 10:05) Medication List - Last Reconciled 06/18/25 by Haylie Nickerson MD aspirin (Adult Aspirin Regimen) 81 mg PO DAILY atorvastatin 80 mg PO DAILY baclofen mg PO clopidogrel 75 mg PO DAILY folic acid 1 mg PO DAILY insulin glargine (Lantus Solostar U-100 Insulin) units subcut lisinopril 2.5 mg PO DAILY metformin 500 mg PO BID methotrexate sodium 20 mg (8 x 2.5 mg) PO QWEEK 90 days metoprolol tartrate 25 mg PO BID nitroglycerin mg sublingual HPI Comments Details: Patient is a 65-year-old male with hyperlipidemia complicated by coronary artery disease, hypertension, diabetes and seronegative rheumatoid arthritis here today for follow up Interval History: Patient last seen 11/07/24 with me. - On methotrexate 25 mg and folic acid 1mg - Continues to do well on the regimen Today - On methotrexate 25mg - Had an ear infection April 2025 - Started on antibiotics and held methotrexate for about 1.5 weeks - Restarted methotrexate about 2 weeks ago - Bilateral wrist pain x 1 week Rheumatologic History: -ve RF-ve CCP dx 06/2023 MTX 06/2023 effective PDN tapered off 10/2023 Initial history: This is a 63-year-old male who presents for evaluation of multiple joint pain and swelling. The condition started 5-6 months ago when the patient started noticing significant cramping of his legs, at night. Soon after he started developing pain and swelling of his ankles, feet, knees, hands, wrists. Associated with significant stiffness. The stiffness can last all day but can improved if he is more active. He denies any back pain or stiffness. He stated that he had left shoulder rotator cuff tendinitis problems in the past, he had a couple of arthroscopies and eventually had left shoulder replacement around 2015. States that prednisone especially 20 mg a day provides dramatic relief. Patient denies any fevers, weight change, he denies any history suggestive of Raynaud's. Denies any history of DVT/PE. Patient's states that patient's mother had colitis she believes that it may be ulcerative colitis Current Rheumatology Medication(s): Methotrexate 25 mg weekly split dose Folic acid 1 mg daily PFSH Medical History Polyarthralgia Hypercholesteremia Stress hyperglycemia Venous insufficiency MARIANNA on CPAP Hypertension GERD (gastroesophageal reflux disease) Diabetes Coronary artery disease Surgical History S/P CABG x 3 Hx of endoscopy H/O arthroscopy of shoulder S/P cardiac catheterization Hx of colonoscopy H/O shoulder replacement Family History Mother DVT (deep venous thrombosis) Hypertension Diabetes Father Coronary artery disease Social History Household Members: Spouse Alcohol intake: current Alcohol intake frequency: holidays/special occasions only Patient Tobacco Use Status: Former Tobacco user Current occupational status: retired 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 Review of Systems Narrative Review of Systems Constitutional: Denies fever, chills, weight loss ENT: Denies vision changes, eye pain or eye redness, dental caries, dry mouth GI: Denies nausea, vomiting, diarrhea, abdominal pain, change in BM Pulm: Denies SOB, STRANGE, hemoptysis, wheezing Cards: Denies chest pain, palpitations Skin: Denies Raynaud's, rash, nail changes, photosensitivity, STEAM [employer] 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 Well appearing and in no apparent painful distress MSK Hands * Right Hand: Able to make a fist. No swelling or tenderness to palpation of the MCPs, PIPs or DIPs. No deformities noted. * Left Hand: Able to make a fist. No swelling or tenderness to palpation of the MCPs, PIPs or DIPs. No deformities noted. Wrists * Right Wrist: Full ROM to flexion and extension. No swelling. No direct TTP but pain with movement * Left Wrist: Full ROM to flexion and extension. No swelling. No direct TTP but pain with movement Elbows * Right Elbow: Full ROM. No swelling or TTP. No TTP of the medial epicondyle. No TTP of the lateral epicondyle * Left Elbow: Full ROM. No swelling or TTP. No TTP of the medial epicondyle. No TTP of the lateral epicondyle Shoulders * Right shoulder: Decreased ROM. No swelling noted. * Left shoulder: Good ROM. No swelling noted. No TTP of the AC joint. No TTP of the subacromial bursa. No TTP of the posterior shoulder Knees * Right knee: Full ROM. No swelling noted. No TTP of the knee joint line. No TTP of pes anserine bursa * Left knee: Full ROM. No swelling noted. No TTP of the knee joint line. No TTP of pes anserine bursa. * Crepitations felt bilaterally Vital Signs: Last Vital Signs Pulse 62 06/18/25 10:06 BP 115/74 06/18/25 10:06 Pulse Ox 98 06/18/25 10:06 Oxygen Delivery Method Room Air 06/18/25 10:06 BMI result Body Mass Index 33.2 Results Reviewed Results Reviewed: Laboratory Tests 08/27/24 05/12/25 09:57 15:14 WBC 8.8 RBC 4.81 Hgb 13.7 L Hct 41.8 L Plt Count 274 ESR 11 Sodium 142 Potassium 3.9 Chloride 108 Carbon Dioxide 23 BUN 15 Creatinine 0.88 AST 25 ALT 33 C-Reactive Protein < 0.10 0.26 Laboratory Tests 05/12/25 15:14 Hepatitis A IgM Ab Nonreactive Hep Bs Antigen Negative Hep Bs Antibody NONREACTIVE Hep B Core Total Ab Nonreactive Hepatitis C Ab (EIA) Nonreactive TB Test (T-Spot) Com Negative Assessment & Plan Assessment & Plan (1) Seronegative rheumatoid arthritis: Comment: -ve RF-ve CCP dx 06/2023 MTX 06/2023 effective PDN tapered off 10/2023 Code(s): M06.00 - Rheumatoid arthritis without rheumatoid factor, unspecified site Category: Medical Plan: #Seronegative RA Patient is a 65-year-old male with seronegative rheumatoid arthritis on methotrexate monotherapy. Having a mild flare of his disease after stopping the methotrexate in the setting of an ear infection Will add a low dose prednisone for 2 months Plan - Methotrexate 20 mg PO weekly - Folic acid 1 mg daily - Prednisone 5mg daily - RTC 4 months - Labs before visit: CBC, CMP, ESR, CRP (2) Pre-op evaluation: Code(s): Z01.818 - Encounter for other preprocedural examination Plan: #Pre Op Evaluation Surgery: Right shoulder replacement Surgeon: Dr. Valencia Date: 08/19/24 Medication recommendations: Based on the 2021 ACR recommendations methotrexate does not need to be held in the perioperative period for knee and hip replacement surgeries as the risk of flares in his higher than the potential benefit reducing infection and wound healing. I would extrapolate this to the shoulder replacement. Recommend that he continue his methotrexate in the perioperative period References: Goodman LOMELI, Chun BROWN, Marisol CHINO, Mohsen Hayward, Familia HORN, Russ Hayward, Alex Grimm, Kristopher KURTZ, Francisco MccallumT, Telly J, Suzanne B, Christine R, Zofia K, Daniel A, Travis L, Reese A, Ton MP, Jay B, Isabelle LA, Greyson P, Cleveland M, Jhoan , Jayden Guzman Jr, Pankaj JA. 2021 [place] [employer] [place] [employer] Hip and Knee Surgeons Guideline for the Perioperative Management of Antirheumatic Medication in Patients With Rheumatic Diseases Undergoing Elective Total Hip or Total Knee Arthroplasty. Arthritis Care Res ([place]). 2021;74(9):8818-0085. doi: 10.1002/acr.40608. Epub 2021Dec 19. PMID: [id number]. (3) detention methotrexate user: Code(s): Z79.631 - long term care social worker (current) use of antimetabolite agent Category: Medical Plan: #Long-term Current Use of Methotrexate Discussed with patient the benefits and risks of methotrexate for managing their rheumatic condition Benefits include reduced pain, reduced mortality, maintenance of remission and reduction of flares Risks include oral ulcers, photosensitivity, hepatotoxicity, hematologic toxicity, pneumonitis, flu-like symptoms (especially day after administration), nodulosis, lymphomas ? Limit alcohol and avoid Bactrim ? Monitoring: CBC, BMP, LFTs every 3-4 months and hepatitis serologies as needed Plan I spent 40 minutes reviewing the record and labs, taking a history, examining the patient, discussing the treatment plan, pre op evaluation and recommendations, ordering diagnostic work up and documenting in the medical record Orders: Orders Aspartate Amino Transferase 4 Months Z79.899 - Other terminal gauger supervisor (current) drug therapy C Reactive Protein 4 Months Z79.899 - Other terminal gauger supervisor (current) drug therapy Complete Blood Count Auto Diff 4 Months Z79.899 - Other terminal gauger supervisor (current) drug therapy Alanine Aminotransferase 4 Months Z79.899 - Other terminal gauger supervisor (current) drug therapy Creatinine 4 Months Z79.899 - Other penitentiary (current) drug therapy Erythrocyte Sedimentation Rate 4 Months Z79.899 - Other penitentiary (current) drug therapy Medications: New prednisone 5 mg PO DAILY 60 tabs 0RF M06.00 - Rheumatoid arthritis without rheumatoid factor, unspecified site Refilled folic acid 1 mg PO DAILY 90 tabs 1RF methotrexate sodium 20 mg (8 x 2.5 mg) PO QWEEK 104 tabs 1RF 90 days M06.00 - Rheumatoid arthritis without rheumatoid factor, unspecified site Coding Level of Care Code Est Pt Level 5 (92202) Add On Problem Visit Only Diagnoses Seronegative rheumatoid arthritis M06.00 Pre-op evaluation Z01.818 detention methotrexate user Z79.631
[2025-06-18 10:06] VITALS: BP 115/74; PULSE 62; O2SAT 98; BMI 33.2
--- OUTSIDE RECORDS SUMMARY | 2025-06-18 11:17 | XMS_ITS | Clinical Summary ---
Author Organization [facility] Address [address] [place] [address] Phone Care Team Providers Care Enologist Name Role Phone Momo Powell MD Primary [...] on file [facility] [place] [address] [place] [address]O [facility] [place] [address] [place] [address] [employer] INSURANCE Care Teams Enologist Relationship Specialty Start Date End Date Momo Powell MD [address] [place] [address] PCP - General Internal Medicine 03/09/17 Additional Source Comments The information contained in this document represents components of the legal health record. It is not the complete legal health record.[facility]
== END 2025-06-18 10:33 | disposition home or self-care (01) ==
LOC: HO.RHES 09:42
PROVIDERS: PCP Nurse Practitioner Family; Visit Provider Student in an Organized Health Care Education/Training Program
DX: M06.09 Rheumatoid arthritis without rheumatoid factor, multiple sites (principal); Z01.818 Encounter for other preprocedural examination; Z79.631 Long term (current) use of antimetabolite agent
CPT/HCPCS: 99215